=== PATIENT | male | born 1940 | race Caucasian/White ===

== ENCOUNTER 2022-06-22 10:42 | Outpatient (CLI) | payer MEDICARE, SELFPAY ==
--- NOTE | ~2022-06-22 | US_ITS ---
EXAMINATION: US carotid duplex BI DATE: 06/22/2022 11:17 INDICATION: Right carotid bruit TECHNIQUE: Grayscale, color Doppler, and pulsed Doppler images of the cervical carotid arteries were obtained. The degree of vessel stenosis is placed in one of the following categories: normal, <50%, 5 0-69%, >=70% but less than near-occlusion, near-occlusion, or total occlusion. Note that percent sten osis relative to normal distal artery lumen diameter is indirectly measured from velocity measurement s as described by Sundar, et al. Radiology 2003; 229:340-346. Notes: Normal: Peak systolic velocity <125 centimeters/sec and no plaque <50%. Peak systolic velocity <125 ( EDV <40; ICA/CCA PSV ratio <2.0; used these factors only a tandem lesions or low cardiac output or co ntralateral disease) 50-69 %: PSV 125-230 (EDV 40-100; ratio 2-4) >= 70% but less than near occlusion: PSV greater than 230 (EDV > 100; ratio> 4.0) Near Occlusion: PSV that is variable; markedly narrowed lumen Occlusion: Absent flow on color/spectral Doppler and no lumen on meyer scale. COMPARISON: None. FINDINGS: RIGHT: The right common carotid artery (CCA) peak systolic velocity (PSV) is 72 cm/s. The right internal car otid artery (ICA) PSV is 319 cm/s. The right ICA end-diastolic velocity (EDV) is 72 cm/s. The right I CA/CCA PSV ratio is 4.4. The external carotid artery (ECA) PSV is 130 cm/s. There is antegrade flow i n the right vertebral artery. LEFT: The left CCA PSV is 66 cm/s. The left ICA PSV is 75 cm/s. The left ICA EDV is 16 cm/s. The left ICA/C CA PSV ratio is 1.1. The ECA PSV is 149 cm/s. There is antegrade flow in the left vertebral artery. IMPRESSION: 1. Greater than or equal to 70% stenosis in the right internal carotid artery by sonographic criteria . 2. Less than 50% stenosis in the left internal carotid artery by sonographic criteria. Reviewed, dictated and finalized at location L. IMPRESSION: 1. Greater than or equal to 70% stenosis in the right internal carotid artery b y sonographic criteria. 2. Less than 50% stenosis in the left internal carotid artery by sonographic cr iteria.
== END 2022-06-22 10:43 | disposition home or self-care (01) ==
PROVIDERS: PCP Family Medicine; Visit Provider Family Medicine
DX: I65.23 Occlusion and stenosis of bilateral carotid arteries (principal); R09.89 Other specified symptoms and signs involving the circulatory and respiratory systems
CPT/HCPCS: 93880

== ENCOUNTER 2022-06-26 08:00 | Outpatient (CLI) | payer MEDICARE, SELFPAY ==
--- NOTE | ~2022-06-26 | US_ITS ---
EXAMINATION: US aorta [facility] DATE: 06/26/2022 08:40 INDICATION: Abdominal aortic aneurysm screening. TECHNIQUE: Grayscale, color Doppler, and pulsed Doppler images of the aorta and common iliac arteries were obtained. COMPARISON: None. FINDINGS: The aorta is normal in caliber and demonstrates atherosclerosis. The right common iliac artery is nor mal in caliber. The left common iliac artery is normal in caliber. IMPRESSION: 1. No abdominal aortic aneurysm. Reviewed, dictated and finalized at location A.
== END 2022-06-26 08:01 | disposition home or self-care (01) ==
PROVIDERS: PCP Family Medicine; Visit Provider Family Medicine
DX: Z13.6 Encounter for screening for cardiovascular disorders (principal)
CPT/HCPCS: 76706

== ENCOUNTER 2022-07-04 08:07 | Outpatient (CLI) | payer MEDICARE, SELFPAY ==
--- NOTE | ~2022-07-04 | US_ITS ---
US arterial ankle brachial ind INDICATION: Peripheral arterial disease TECHNIQUE: Segmental pressures and plethysmographic and Doppler waveforms of the brachial and lower e xtremity arteries were obtained. COMPARISON: None. FINDINGS: Right and left brachial artery pressures of 127 mm Hg and 139 mm Hg, respectively, are concordant (no rmal difference <= 30 mmHg). The right ankle-brachial index (DESTINY) is 0.58 (normal >= 0.9-1.0). The right great toe-brachial index (TBI) is 0.2 (normal >= 0.60). The left DESTINY is 0.75. The left TBI is 0.29. IMPRESSION: 1. Diminished bilateral ankle and toe brachial indices, consistent with moderate-severe peripheral ar terial disease, right greater than left. Reviewed, dictated and finalized at location L. IMPRESSION: 1. Diminished bilateral ankle and toe brachial indices, consistent with moderat e-severe peripheral arterial disease, right greater than left.
== END 2022-07-04 08:08 | disposition home or self-care (01) ==
PROVIDERS: PCP Family Medicine; Visit Provider Family Medicine
DX: I73.9 Peripheral vascular disease, unspecified (principal)
CPT/HCPCS: 93922

== ENCOUNTER 2022-07-07 11:48 | Outpatient (CLI) | payer MEDICARE, SELFPAY ==
--- NOTE | ~2022-07-07 | US_ITS ---
US right upper quadrant INDICATION: Abnormal labs. PROCEDURE: Realtime right upper abdominal ultrasound. COMPARISON: No prior studies for comparison. FINDINGS: The pancreas is normal without focal mass or pancreatic ductal dilation. There is homogene ous liver echotexture. There is nodular liver surface, compatible with cirrhosis. There is normal di rectional flow in the portal vein. There are gallstones. Common bile duct measures 2 mm. No sonographic Dubon's sign. IMPRESSION: 1: Nodular liver surface, consistent with cirrhosis. 2: Cholelithiasis. Reviewed, dictated and finalized at location B.
== END 2022-07-07 11:49 | disposition home or self-care (01) ==
PROVIDERS: PCP Family Medicine; Visit Provider Physician Assistant
DX: R79.89 Other specified abnormal findings of blood chemistry (principal); K80.20 Calculus of gallbladder without cholecystitis without obstruction; K76.9 Liver disease, unspecified
CPT/HCPCS: 76705

== ENCOUNTER 2022-07-14 08:50 | Outpatient (CLI) | payer MEDICARE, SELFPAY ==
[2022-07-14 10:22] LABS: Alanine Aminotransferase 358 U/L (6-50); Alkaline Phosphatase 82 U/L (38-126); Anion Gap 4 mmol/L (8-16); Aspartate Amino Transferase 449 U/L (17-59); Bilirubin,Total 0.5 mg/dL (0.2-1.3); Blood Urea Nitrogen 37 mg/dL (9-20); Calcium 8.8 mg/dL (8.4-10.2); Carbon Dioxide 34 mmol/L (22-30); Chloride 100 mmol/L (98-107); Estimated Glomerular Filt Rate 29; Glucose 100 mg/dL (65-110); Sodium 138 mmol/L (137-145)
[2022-07-14 11:02] LABS: Hepatitis B Surface Antigen Negative (Negative)
[2022-07-14 11:08] LABS: HAV RESULT Negative (Negative); Hepatitis B Core IgM Result Negative (Negative)
[2022-07-14 11:20] LABS: Hepatitis C Virus Antibody Negative (Negative)
== END 2022-07-14 08:51 | disposition home or self-care (01) ==
LOC: ANHLAB 08:51
PROVIDERS: PCP Family Medicine; Visit Provider Family Medicine
DX: R74.8 Abnormal levels of other serum enzymes (principal); K74.60 Unspecified cirrhosis of liver
CPT/HCPCS: 36415; 80053; 80074; 82728; 86038

== ENCOUNTER 2022-07-14 10:58 | Inpatient (IN) | payer MEDICARE, SELFPAY ==
[2022-07-14] VITALS (22 sets, daily range): BP systolic 128–148; BP diastolic 56–62; PULSE 53–71; RESP 12–34; TEMP 36.6–37.6; O2SAT 95–100; BMI 24.1
--- NOTE | ~2022-07-14 | MR_ITS ---
MRI of the abdomen: Clinical indication: Cholelithiasis, abnormal liver enzymes. Technique: Coronal SSFSE ARC, WATER:coronal LAVA-FLEX, Coronal 2D FIESTA FatSat, Axial SSFSE BH ARC, Axial 3D DualEcho BH, Axial SSFSE-IR, Axial DWI b=500, Axial 2D FIESTA FatSat, pre and dynamic postco ntrast Axial LAVA ARC, postcontrast Coronal In and Opposed phase LAVA FLEX. Following intravenous adm inistration of 15 cc MultiHance gadolinium, T1-weighted fat-sat imaging was performed in the axial an d coronal planes. Findings: Multiple gallstones are noted. The common bile duct is normal in course and caliber. No fi lling defects are seen within the CBD. No evidence of intrahepatic biliary ductal dilatation. The han creatic duct is normal in size. Liver, spleen, pancreas, adrenals, kidneys appear normal. There is focal dilatation of the upper infr arenal abdominal aorta to 3.1 cm in diameter. No suspicious postcontrast enhancement identified. Impression: Cholelithiasis. 3.1 cm infrarenal abdominal aortic aneurysm. Reviewed, dictated and finalized at [facility]. Impression: Cholelithiasis. 3.1 cm infrarenal abdominal aortic aneurysm.
--- NOTE | ~2022-07-14 | CT_ITS ---
CT Scan of the Chest without Contrast: Clinical Indication: Weight loss Technique: Contiguous sections were acquired throughout the chest without intravenous contrast. Dose reduction technique was used on this scan by utilizing automated exposure control and iterative recon struction technique. The dose-length product (DLP) was 216.57 mGy-cm. Findings: There is no evidence of any significant mediastinal, hilar or axillary lymphadenopathy. Atherosclerot ic calcifications of the aorta and coronary arteries are present. There is no evidence of pleural or pericardial effusion. Calcified right lower lobe granuloma present there is mild scarring in the right upper and lower lobe s. Left lung is clear.. Images through the upper abdomen reveal nonobstructing left renal stones measuring up to 5 mm. Impression: No significant pulmonary abnormality seen. Chronic pulmonary findings, as above. Left nephrolithiasis. Reviewed, dictated and finalized at [facility]. Impression: No significant pulmonary abnormality seen. Chronic pulmonary findings, as above . Left nephrolithiasis.
--- NOTE | ~2022-07-14 | CT_ITS ---
EXAMINATION: CT abdomen pelvis wo con DATE: 07/14/2022 13:15 INDICATION: Elevated liver enzymes TECHNIQUE: Computed tomography (CT) of the abdomen and pelvis was performed without intravenous contr ast. The dose-length product (DLP) was 507.12 mGy-cm. Automated exposure control and iterative recons truction technique were employed. COMPARISON: None FINDINGS: A calcified nodule of the right lower lobe is consistent with old granulomatous disease. Th e heart size is normal. Punctate calcifications in an otherwise normal spleen likely represent healed granulomatous disease. There is a 7 mm cyst of the left hepatic lobe. The pancreas and adrenal gland s are normal. There appear to be stones in the nondistended gallbladder. There is no intrahepatic or extrahepatic biliary dilatation. There is a 9 mm nonobstructing stone of the right kidney. There are at least four nonobstructing stones of the left kidney which measure up to 5 mm. There is a 3.1 cm fu siform infrarenal abdominal aortic aneurysm. No pathologically enlarged abdominal or pelvic lymph nod es are identified. There is calcified atherosclerosis of the aorta and many of the other arteries. Co lonic diverticulosis is present without evidence of diverticulitis. No free intraperitoneal gas or ev idence of bowel obstruction. There is fat stranding of the small bowel mesentery with preservation of the fat around the mesenteric vessels (fat ring sign). There is mild lumbar spondylosis. IMPRESSION: 1. No CT correlate for the patient's symptoms. 2. Bilateral nonobstructing nephrolithiasis. 3. Findings consistent with mesenteric panniculitis. 4. 3.1 cm fusiform infrarenal abdominal aortic aneurysm. 5. Possible cholelithiasis. Reviewed, dictated and finalized at location B.
--- NOTE | ~2022-07-14 | XR_ITS ---
EXAMINATION: XR chest 1V portable DATE: 07/14/2022 12:53 INDICATION: Weakness. TECHNIQUE: A single frontal view of the chest was obtained on 3 radiographs. COMPARISON: None. FINDINGS: The patient is rotated to his right. There is a 1 cm nodule in right lower lung zone. No pl eural effusion or pneumothorax. The heart size is normal. There are old healed left rib fractures. IMPRESSION: 1. 1 cm nodule in right lower lung zone suspicious for primary bronchogenic carcinoma. Noncontrast ch est CT is recommended (unless the nodule is included on the pending CT abdomen and pelvis). Reviewed, dictated and finalized at location A. IMPRESSION: 1. 1 cm nodule in right lower lung zone suspicious for primary bronchogenic car cinoma. Noncontrast chest CT is recommended (unless the nodule is included on t he pending CT abdomen and pelvis).
--- NOTE | 2022-07-14 12:18 | ECG_ITS ---
Measurements Intervals [place] Rate: 55 P: 33 VA: 198 QRS: -28 QRSD: 89 T: -2 QT: 441 QTc: 423 Interpretive Statements SINUS BRADYCARDIA LEFT VENTRICULAR HYPERTROPHY AND ST-T CHANGE [VOLTAGE CRITERIA PLUS ST/T ABNORMALITY] NO PREVIOUS ECG AVAILABLE FOR COMPARISON Electronically Signed On 07-14-2022 13:52:18 CDT by Valerie Velasquez M.D.
--- NOTE | 2022-07-14 12:18 | ED.RECABL ---
HPI - Recheck/Abnormal Lab/Rx General Chief Complaint: Recheck/Abnormal Lab/Rx Stated Complaint: liver and kidney labs abnormal Time Seen by Provider: 07/14/22 12:14 Source: patient Mode of arrival: ambulatory Limitations: no limitations History of Present Illness HPI narrative: 81 years old white male came with progressive weakness all over for months, was seen by a new family physician 1 month ago, and today blood work-up showed elevated liver enzymes and elevated creatinine referred to our emergency room for further evaluation. Patient denies any fever, chills, nausea, vomiting, diarrhea, abdominal pain, chest pain, shortness of breath, headache or focal neurodeficit. Patient started anticholesterol medication probably 6 months ago, we do not have old records for comparison at this time. Related Data Home Medications Medication Instructions Recorded Confirmed cetirizine 10 mg tablet (Zyrtec) 10 mg PO DAILY PRN 06/14/22 07/05/22 melatonin 10 mg tablet 10 mg PO QHS 06/14/22 07/05/22 metoprolol succinate 50 mg 50 mg PO DAILY 06/14/22 07/05/22 tablet,extended release 24 hr rosuvastatin 40 mg tablet 40 mg PO DAILY 06/14/22 07/05/22 trazodone 100 mg tablet 100 mg PO QHS PRN 06/14/22 07/05/22 Allergies Allergy/AdvReac Type Severity Reaction Status Date / Time No Known Allergies Allergy Verified 07/14/22 12:03 Review of Systems Review of Systems: All systems reviewed & are unremarkable except as noted in HPI and below PMFSH Past Medical History Medical History Erectile dysfunction Hyperlipidemia Hypertension Insomnia Peripheral arterial disease Surgical History Surgical History 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 History of appendectomy Family History Family History Father Gastric cancer Mother Hypertension Sibling Hypertension Social History Social History Smoking status: Former smoker Alcohol intake: never Substance use: never Living arrangements: with family Occupation/Education: retired Gender identity (if verbalized by the patient): Male Sexual Orientation (if Verbalized by the Patient): Straight or Heterosexual Spiritual care concerns: No Exam Narrative: General appearance: Well-developed, well-nourished Skin: Normal color Head: Normocephalic, nontraumatic Eyes: Clear conjunctiva ENT: Oropharynx normal, ears normal, nose normal Neck: Supple, nontender Chest and respiratory: Airway patent, no respiratory distress, no accessory muscle use Heart: Regular rate/rhythm Abdomen: Soft, nontender, no organomegaly, quiet bowel sounds Vascular: Normal peripheral pulses, normal capillary refill. Musculoskeletal: Normal range of motion, nontender back Neurologic: Alert and oriented ?3, [employer] is normal as tested, no gross motor deficit Course Reevaluation(s) Reevaluation #1: No new changes since arrival to the emergency room until the time of admission Date: 07/14/22 Time: 14:49 Vital Signs Vital signs: Vital Signs Temperature 36.6 C 07/14/22 11:01 Pulse Rate 65 07/14/22 11:01 Respiratory Rate 20 07/14/22 11:01 Blood Pressure 129/56 L 07/14/22 11:01 Pulse Oximetry 97 07/14/22 11:01 Oxygen Delivery Room Air 07/14/22 11:01 Temperature 36.6 C 07/14/22 11:01 Pulse Rate 64 07/14/22 14:30 Respiratory Rate 22 H 07/14/22 14:30 Blood Pressure 148/58 H 07/14/22 12:19 Pulse Oximetry 98 07/14/22 14:30 Oxygen Delivery Room Air 07/14/22 11:01 [facility] -
[2022-07-14 13:27] LABS: Appearance Urine Cloudy (Clear); Bacteria Urine None Seen /hpf; Bilirubin Urine Negative (Negative); Blood Urine 3+ (Negative); Color Urine Yellow (Yellow); Glucose Urine UA Negative (Negative); Hyaline Casts Urine Present /lpf; Ketones Urine Negative (Negative); Leukocyte Esterase Ur Trace LEU/UL (Negative); Need Manual Microscopic Reviewed; Nitrate Urine Negative (Negative); Protein Urine 3+ mg/dL (Negative); Specific Grav Ur 1.016 (1.001-1.035); Squamous Epithelial Cell Urine None seen /hpf (Few); WBC Urine 0-5 /hpf; pH Urine 6.5 (5.0-9.0)
[2022-07-14 13:30] LABS: Add Urine Microscopic? YES
[2022-07-14] MEDS: SODIUM CHLORIDE 0.9% IV 1,000 ML 125 ML IV CONT ×2 (15:16→23:23)
--- NOTE | 2022-07-14 16:05 | ADMGEN ---
This patient, Destin Acosta, was admitted to Medical Room 260-01. Patient/family oriented to hospital policies and general routines including ID bracelet, bed and alarms, visiting hours, pain management, procedures, bathroom and other care routines, personal items, smoking policy, room service/diet, and visiting hours. Information on how to activate the Rapid Response Team has been discussed. Patient/Family are encouraged to report perceived risks to care and to ask questions if they do not understand what they are told or what they should do.
--- NOTE | 2022-07-14 22:07 | PM.IMHP ---
H&P: HPI History of Present Illness Date/Time: 07/14/22 22:07 Chief Complaint: Abnormal lab Narrative: this is an 81-year-old male patient who has been complaining of progressive weakness over last several months. The patient has gone to a new physician over the last month and has had some Lab workup. the patient denies any fever chills. The patient was sent to the emergency room for elevated liver enzymes and elevated creatinine. The only new medication was some cholesterol medication that he surgery over 6 months ago. His creatinine was noted to be 2.2 and we have no prior lab values for comparison. AST is 449 with her previous lab value on 07/06/2022. It was 339. ALT is 358 today and was 272 a month ago. The patient has 3+ protein in his urine is cloudy I saw has 3+ blood with trace leukocyte esterase. He has negative hepatitis panel. Abdominal pelvis CT was read as followingNo CT correlate for the patient's symptoms. 2. Bilateral nonobstructing nephrolithiasis. 3. Findings consistent with mesenteric panniculitis. 4. 3.1 cm fusiform infrarenal abdominal aortic aneurysm. 5. Possible cholelithiasis. chest x-ray was read as the following?cm nodule in right lower lung zone suspicious for primary bronchogenic carcinoma. Noncontrast chest CT is recommended (unless the nodule is included on the pending CT abdomen and pelvis). he denies any nausea vomiting or diarrhea. The patient was started on IV fluids. The patient is being admitted for observation status on the date Services 07/14/2022 Review of Systems Review of Systems: All systems reviewed & are unremarkable except as noted in HPI and below Constitutional: Constitutional: Reports as per HPI and Reports no additional constitutional complaints Eyes: Eyes: Reports as per HPI and Reports no additional eye complaints ENT: Reports system reviewed and no additional complaints, except as documented and Reports Normal hearing present Cardiovascular: Cardiovascular: Reports no additional cardiovascular complaints Respiratory: Respiratory: Reports no additional respiratory complaints and Reports no additional respiratory complaints Gastrointestinal: Gastrointestinal: Reports as per HPI and Reports no additional gastrointestinal complaints Musculoskeletal: Musculoskeletal: Reports no additional musculoskeletal complaints Integumentary/Breasts: Skin/Breast: Reports system reviewed and no additional complaints, except as docu and Reports as per HPI Neurologic: Reports system reviewed and no additional complaints, except as documented, Reports as per HPI and Reports Normal hearing present Psychiatric: Psychiatric: Reports no additional psychiatric complaints and Reports as per HPI Endocrine: Endocrine: Reports no additional endocrine complaints Hematologic/Lymphatic: Hematologic/Lymphatic: Reports no additional hematologic/lymphatic complaints Allergic/Immunologic: Allergic/Immunologic: Reports no additional allergic/immunologic complaints [facility] Past Medical History Medical History Erectile dysfunction Hyperlipidemia Hypertension Insomnia Peripheral arterial disease Surgical History Surgical History 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 He is retired code status full code Smoking status: Former smoker Alcohol intake: never Substance use: never Lack of Transportation: No Lack of Food: Never True Current Housing: I Have Housing Concerned About Future Housing: No Difficulty Paying Gas/Electric Bills: No Di
[2022-07-15 03:59] VITALS: BP 157/67; PULSE 57; RESP 16; TEMP 37.1; O2SAT 97
[2022-07-15 05:59] LABS: Basophils Absolute Auto 0.1 K/mm3 (0.0-0.1); Basophils Percent Auto 0.5 % (0.2-1.2); Eosinophils Absolute Auto 0.4 K/mm3 (0-0.3); Eosinophils Percent Auto 3.8 % (0-4.4); Hematocrit 42.9 % (42.0-52.0); Hemoglobin 13.7 g/dL (14.0-18.0); Immature Granulocyte Absolute 0.05 K/mm3 (0.00-0.031); Immature Granulocyte Percent A 0.5 % (0-0.5); Lymphocytes Absolute Auto 1.25 K/mm3 (0.9-3.2); Lymphocytes Percent Auto 11.6 % (18.3-44.2); Mean Corpuscular HGB Conc 31.9 g/dl (32-36); Mean Corpuscular Volume 94.1 fl (80-100); Mean Platelet Volume 11.3 fl (7.4-10.4); Monocytes Absolute Auto 1.1 K/mm3 (0.1-0.6); Neutrophils Absolute Auto 7.9 K/mm3 (1.3-6.7); Neutrophils Percent Auto 73.6 % (45.5-73.1); Platelet Count Result 301 k/mm3 (150-375); Red Blood Count 4.56 M/mm3 (4.6-6.20); Red Cell Distribution Width 14.2 % (11.5-14.5); White Blood Count 10.8 K/mm3 (4.5-10.0)
[2022-07-15 06:18] LABS: Lactic Acid Reflex 0.8 mmol/L (0.7-2.0)
[2022-07-15 06:23] LABS: Alanine Aminotransferase 359 U/L (6-50); Alkaline Phosphatase 81 U/L (38-126); Anion Gap 4 mmol/L (8-16); Aspartate Amino Transferase 453 U/L (17-59); Bilirubin,Total 0.5 mg/dL (0.2-1.3); Blood Urea Nitrogen 32 mg/dL (9-20); Calcium 8.3 mg/dL (8.4-10.2); Carbon Dioxide 31 mmol/L (22-30); Chloride 102 mmol/L (98-107); Estimated CRCL calculation 24 ml/min; Estimated Glomerular Filt Rate 30; Glucose 90 mg/dL (65-110); Magnesium 2.2 mg/dL (1.6-2.3); Potassium 4.3 mmol/L (3.4-5.0); Sodium 137 mmol/L (137-145)
--- NOTE | 2022-07-15 06:47 | PC.NURSE ---
PT REFUSING TO COMPLETE CONSENT FOR MRCP. EDUCATED PT ON IMPORTANCE OF MRCP. PT STATES HE DOES NOT FEEL COMFORTABLE HAVING IT. PT STATES HE WOULD LIKE TO SPEAK MORE WITH THE DOCTOR ABOUT MRCP
--- NOTE | 2022-07-15 08:46 | WPDGICN ---
Assessment and Plan Assessment and plan (1) Weakness: Code(s): R53.1 - Weakness Status: Acute Assessment and Plan: wonder if could have component of myopathy because progressive proximal weakness- will check ck and aldolase (2) Elevated liver enzymes: Code(s): R74.8 - Abnormal levels of other serum enzymes Status: Acute Assessment and Plan: last ultrasound noted possible cirrhosis will complete work up of chronic liver conditions order CK (if elevated then can explain abnormal liver enzymes) hold statin for now (3) Cirrhosis: Code(s): K74.60 - Unspecified cirrhosis of liver Status: Acute Assessment and Plan: will complete work up, no hepatitis, yarelis pending may need egd as outpatient to assess for portal htn, etc (4) Renal insufficiency: Code(s): N28.9 - Disorder of kidney and ureter, unspecified Status: Acute Assessment and Plan: new finding work up by primary (5) Hypertension: Code(s): I10 - Essential (primary) hypertension Status: Acute GI Consult Note Consult date/time: 07/15/22 08:46 Reason for consult: elevated liver enzymes, weakness HPI: Destin Acosta is a 81 year old male with h/o HTN, high cholesterol on statin who has been complaining of progressive proximal weakness over last month (he has been having hard time of getting up and lifting her arms). She went to see her PCP and found to have elevated transaminases 200's (no alcohol use, no h/o liver disease), esr normal, yarelis pending, ultrasound showed possible liver cirrhosis. Repeat blood work persistent elevated transaminases and also [place]. His creatinine was 2.2, ALT is 358, normal bilirubin. He has negative hepatitis panel.? Abdominal pelvis CT was reviewed- no CT correlate for the patient's symptoms, Bilateral nonobstructing nephrolithiasis. Findings consistent with mesenteric panniculitis. 3.1 cm fusiform infrarenal abdominal aortic aneurysm. Possible cholelithiasis. Review of Systems Constitutional: Constitutional: Denies chills and Reports weakness Eyes: Eyes: Denies blurry vision ENT: Reports Normal hearing present Cardiovascular: Cardiovascular: Denies chest pain Respiratory: Respiratory: Denies cough Gastrointestinal: Gastrointestinal: Denies abdominal pain and Denies nausea Genitourinary: Genitourinary: Denies hematuria Musculoskeletal: Comments: weakness Integumentary/Breasts: Skin/Breast: Denies rash Neurologic: Denies Abnormal speech present Psychiatric: Psychiatric: Denies confusion [facility] Past Medical History Medical History Erectile dysfunction Hyperlipidemia Hypertension Insomnia Peripheral arterial disease Surgical History Surgical History 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 He is retired code status full code Smoking status: Former smoker Alcohol intake: never Substance use: never Lack of Transportation: No Lack of Food: Never True Current Housing: I Have Housing Concerned About Future Housing: No Difficulty Paying Gas/Electric Bills: No Difficulty Paying for Meds: No Currently Unemployed: No Education: High School Diploma/GED Difficulty w/ Childcare or Family Care: No Living arrangements: with family Occupation/Education: retired Gender identity (if verbalized by the patient): Male Sexual Orientation (if Verbalized by the Patient): Straight or Heterosexual Spiritual care concerns: No Meds Home Medications and Allergies Home Me
[2022-07-15 08:54] LABS: Free T4 Free Thyroxine Reflex 1.09 ng/dL (0.78-2.19)
[2022-07-15] MEDS: LORATADINE 10 MG TABLET PO (09:08)
[2022-07-15] MEDS: THIAMINE HCL 100 MG TABLET PO (09:09)
[2022-07-15 09:10] VITALS: PULSE 66
[2022-07-15] MEDS: METOPROLOL SUCCINATE EXT REL 50 MG TABCR PO (09:10)
[2022-07-15 09:59] LABS: Creatine Kinase > 16000 U/L (55-170)
--- NOTE | 2022-07-15 10:41 | PCPTNOTE ---
received PT orders for pt; activity order is bed rest ; left voice mail message to change activity order if PT to eval pt for Dr Lucero.
[2022-07-15 10:57] LABS: Total Triiodothyronine (T3) 0.94 NG/ML (0.97-1.69)
--- NOTE | 2022-07-15 12:32 | PM.IMPN ---
Progress Note: A&P Assessment and Plan (1) Weakness: Code(s): R53.1 - Weakness Status: Acute Assessment and Plan: Significant proximal muscle weakness. CK ordered by GI earlier today reaching the presenting diagnosis of rhabdomyolysis. Underlying etiology is unknown however will Discontinue statin use. Thyroid function is normal IV hydration to continue and monitor CK level PT OT to see (2) Elevated liver enzymes: Code(s): R74.8 - Abnormal levels of other serum enzymes Status: Acute Assessment and Plan: Hold statin MRCP is the patient does have a history of cholelithiasis. Bilirubin and ALP is normal choledocholithiasis less suspected However he is claustrophobic and hesitant in getting the MRCP done. (3) Renal insufficiency: Code(s): N28.9 - Disorder of kidney and ureter, unspecified Status: Acute Assessment and Plan: Hold lisinopril. Continue with IV fluids and monitor CT negative for hydronephrosis Could be related to underlying rhabdomyolysis (4) Hypertension: Code(s): I10 - Essential (primary) hypertension Status: Acute Assessment and Plan: Continue with metoprolol on hold lisinopril due to the acute renal failure. (5) Hyperlipidemia: Code(s): E78.5 - Hyperlipidemia, unspecified Status: Acute Assessment and Plan: Holding statin due to his elevated liver enzymes. (6) Peripheral arterial disease: Code(s): I73.9 - Peripheral vascular disease, unspecified Status: Acute Assessment and Plan: Continue with current treatment. (7) Aneurysm: Code(s): I72.9 - Aneurysm of unspecified site Status: Acute Assessment and Plan: 1. No CT correlate for the patient's symptoms. 2. Bilateral nonobstructing nephrolithiasis. 3. Findings consistent with mesenteric panniculitis. 4. 3.1 cm fusiform infrarenal abdominal aortic aneurysm. 5. Possible cholelithiasis. The patient will need to be monitored outpatient. Plan Cirrhosis of liver: New diagnosis no use of alcohol. Will check ferritin hepatitis panel BORIS hepatitis panel is negative Loss of weight over 40 lb over a year will do CT chest to further evaluate Diarrhea check ESR CRP. Stool studies Subjective Date/time seen: 07/15/22 12:32 Interval history: Chart reviewed. Progressive weakness over the past month ir to. LFTs elevated unclear etiology. No history of alcohol use. Ongoing diarrhea for few months. Progressive proximal muscle weakness reported elevated creatinine which has been worsening creatinine of 2.2 prior level reported 1.6. Been started on IV fluids. Feels better. CK level came back very elevated. Ultrasound liver with cirrhosis Review of Systems Review of Systems: All systems reviewed & are unremarkable except as noted in HPI and below Exam Narrative: General appearance: Well-developed, well-nourished Skin: Normal color no rash Head: Normocephalic, nontraumatic Eyes: Clear conjunctiva ENT: Oropharynx normal, ears normal, nose normal Neck: Supple, nontender Chest and respiratory: Airway patent, no respiratory distress, no accessory muscle use Heart: Regular rate/rhythm Abdomen: Soft, nontender, no organomegaly, quiet bowel sounds Vascular: Normal peripheral pulses, normal capillary refill. Musculoskeletal: Normal range of motion, nontender back Neurologic: Alert and oriented ?3, [employer] is normal as tested, proximal muscle weakness unable to lift legs up also had upper extremity weakness ?? Objective Data Vital Signs Vital Signs: Vital Signs - 24 hr 07/14/22 12:57 07/14/22 13:18 07/14/22 13:52 Temperature Pulse Rate 59 L 59 L 59 L Respiratory Rate 23 H 25 H Blood Pressure Pulse Oximetry 98 Oxygen Delivery 07/14/22 14:00 07/14/22 14:15 07/14/22 14:30 Temperature Pulse Rate 57 L 55 L 64 Respiratory Rate 19 22 H 22 H Blood Pressure Pulse Oximetry 98 97 98 Oxygen De
[2022-07-15 13:21] LABS: CRP 1.6 mg/dL (<1.0)
[2022-07-15 13:28] LABS: Erythrocyte Sedimentation Rate 48 mm/hr (0-20)
[2022-07-15 14:30] VITALS: BP 156/59; PULSE 64; RESP 18; TEMP 36.7; O2SAT 98
[2022-07-15 15:04] LABS: Lactate Dehydrogenase 1226 U/L (120-246)
[2022-07-15 19:20] VITALS: BP 168/61; PULSE 61; RESP 16; TEMP 37.1; O2SAT 97
[2022-07-15 20:00] VITALS: PULSE 61; RESP 16; O2SAT 97
[2022-07-15] MEDS: MELATONIN 5 MG TABLET 10 MG PO (20:49)
[2022-07-16] MEDS: traZODone HCL 50 MG TABLET 100 MG PO ×2 (00:10→23:09)
[2022-07-16] MEDS: SODIUM CHLORIDE 0.9% IV 1,000 ML 125 ML IV CONT ×2 (00:11→17:43)
[2022-07-16 05:19] VITALS: BP 140/77; PULSE 74; RESP 18; TEMP 36.8; O2SAT 95
[2022-07-16 05:58] LABS: Basophils Percent Auto 0.3 % (0.2-1.2); Eosinophils Absolute Auto 0.4 K/mm3 (0-0.3); Eosinophils Percent Auto 3.9 % (0-4.4); Hematocrit 39.4 % (42.0-52.0); Hemoglobin 12.6 g/dL (14.0-18.0); Immature Granulocyte Absolute 0.01 K/mm3 (0.00-0.031); Immature Granulocyte Percent A 0.1 % (0-0.5); Lymphocytes Absolute Auto 1.16 K/mm3 (0.9-3.2); Lymphocytes Percent Auto 12.8 % (18.3-44.2); Mean Corpuscular Hemoglobin 30.2 pg (26-34); Mean Corpuscular Volume 94.5 fl (80-100); Mean Platelet Volume 11.6 fl (7.4-10.4); Monocytes Absolute Auto 0.9 K/mm3 (0.1-0.6); Monocytes Percent Auto 9.9 % (2.6-8.5); Neutrophils Absolute Auto 6.6 K/mm3 (1.3-6.7); Platelet Count Result 262 k/mm3 (150-375); Red Blood Count 4.17 M/mm3 (4.6-6.20); Red Cell Distribution Width 14.4 % (11.5-14.5); White Blood Count 9.1 K/mm3 (4.5-10.0)
[2022-07-16 06:35] LABS: Alanine Aminotransferase 326 U/L (6-50); Albumin Level 3.4 g/dL (3.5-5.1); Alkaline Phosphatase 71 U/L (38-126); Anion Gap 5 mmol/L (8-16); Aspartate Amino Transferase 410 U/L (17-59); Bilirubin,Total 0.5 mg/dL (0.2-1.3); Blood Urea Nitrogen 35 mg/dL (9-20); Calcium 8.2 mg/dL (8.4-10.2); Carbon Dioxide 29 mmol/L (22-30); Chloride 106 mmol/L (98-107); Creatine Kinase > 16000 U/L (55-170); Estimated CRCL calculation 26 ml/min; Estimated Glomerular Filt Rate 34; Glucose 84 mg/dL (65-110); Potassium 4.4 mmol/L (3.4-5.0); Sodium 140 mmol/L (137-145)
[2022-07-16] MEDS: LORazepam INJ (*CRX) 2 MG/ML VIAL 1 MG IV PUSH (06:48)
[2022-07-16 08:00] VITALS: PULSE 63; RESP 18; O2SAT 97
[2022-07-16 09:19] VITALS: PULSE 75
[2022-07-16] MEDS: LORATADINE 10 MG TABLET PO (09:19)
[2022-07-16] MEDS: METOPROLOL SUCCINATE EXT REL 50 MG TABCR PO (09:19)
[2022-07-16] MEDS: THIAMINE HCL 100 MG TABLET PO (09:20)
--- NOTE | 2022-07-16 12:16 | PM.IMPN ---
Progress Note: A&P Assessment and Plan (1) Weakness: Code(s): R53.1 - Weakness Status: Acute Assessment and Plan: Significant proximal muscle weakness. CK ordered by GI earlier today reaching the presenting diagnosis of rhabdomyolysis. Underlying etiology is unknown however will Discontinue statin use. Thyroid function is normal IV hydration to continue and monitor CK level PT OT to see Continue to monitor CK level (2) Elevated liver enzymes: Code(s): R74.8 - Abnormal levels of other serum enzymes Status: Acute Assessment and Plan: Hold statin MRCP is the patient does have a history of cholelithiasis. Bilirubin and ALP is normal choledocholithiasis less suspected However he is claustrophobic and hesitant in getting the MRCP done. MRCP done today pending results (3) Renal insufficiency: Code(s): N28.9 - Disorder of kidney and ureter, unspecified Status: Acute Assessment and Plan: Hold lisinopril. Continue with IV fluids and monitor CT negative for hydronephrosis Could be related to underlying rhabdomyolysis (4) Hypertension: Code(s): I10 - Essential (primary) hypertension Status: Acute Assessment and Plan: Continue with metoprolol on hold lisinopril due to the acute renal failure. (5) Hyperlipidemia: Code(s): E78.5 - Hyperlipidemia, unspecified Status: Acute Assessment and Plan: Holding statin due to his elevated liver enzymes. (6) Peripheral arterial disease: Code(s): I73.9 - Peripheral vascular disease, unspecified Status: Acute Assessment and Plan: Continue with current treatment. (7) Aneurysm: Code(s): I72.9 - Aneurysm of unspecified site Status: Acute Assessment and Plan: 1. No CT correlate for the patient's symptoms. 2. Bilateral nonobstructing nephrolithiasis. 3. Findings consistent with mesenteric panniculitis. 4. 3.1 cm fusiform infrarenal abdominal aortic aneurysm. 5. Possible cholelithiasis. The patient will need to be monitored outpatient. Plan Cirrhosis of liver: New diagnosis no use of alcohol. Will check ferritin hepatitis panel BORIS hepatitis panel is negative Loss of weight over 40 lb over a year. CT chest negative for any suspicious Diarrhea check ESR CRP. Stool studies Subjective Date/time seen: 07/16/22 12:16 Interval history: Chart reviewed. Progressive weakness over the past month ir to. LFTs elevated unclear etiology. No history of alcohol use. Ongoing diarrhea for few months. Progressive proximal muscle weakness reported elevated creatinine which has been worsening creatinine of 2.2 prior level reported 1.6. Been started on IV fluids. Feels better. CK level came back very elevated. Ultrasound liver with cirrhosis 07/16/2022 no overnight events. Feeling stronger. Weakness has improved. IV fluid is ongoing. No shortness of breath or chest pain. Review of Systems Review of Systems: All systems reviewed & are unremarkable except as noted in HPI and below Exam Narrative: General appearance: Well-developed, well-nourished Skin: Normal color no rash Head: Normocephalic, nontraumatic Eyes: Clear conjunctiva ENT: Oropharynx normal, ears normal, nose normal Neck: Supple, nontender Chest and respiratory: Airway patent, no respiratory distress, no accessory muscle use Heart: Regular rate/rhythm Abdomen: Soft, nontender, no organomegaly, quiet bowel sounds Vascular: Normal peripheral pulses, normal capillary refill. 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 Objective Data Vital Signs Vital Signs: Vital Signs - 24 hr 07/15/22 14:30 07/15/22 19:20 07/15/22 20:00 Temperature 98.1 F 98.8 F Pulse Rate 64 61 61 Respiratory Rate 18 16 16 Blood Pressure 156/59 H 168/61 H Pulse Oximetry 98 97 97 Oxygen Delivery Room
[2022-07-16 13:46] VITALS: BP 104/51; PULSE 63; RESP 18; TEMP 37; O2SAT 97
--- NOTE | 2022-07-16 15:27 | PCPTNOTE ---
Attempted to see pt for PT session; pt declined at this time as he wanted to rest.
[2022-07-16 19:42] VITALS: BP 134/60; PULSE 62; RESP 20; TEMP 37.2; O2SAT 98
--- NOTE | 2022-07-16 19:42 | WPDGIPROGNO ---
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, unspecified Status: Acute Assessment and Plan: this is the cause of proximal weakness and subsequent elevated transaminases, this is not liver related he will need complete work up for myopathy (pending aldolase), will get cryo/anca to assess if vasculitis, anti mayela and consult neurology consider EMG, MRI, biopsy- work up by primary will follow from [place], call if questions (2) Rhabdomyolysis: Code(s): M62.82 - Rhabdomyolysis Status: Acute Assessment and Plan: statin also on hold (3) Weakness: Code(s): R53.1 - Weakness Status: Acute Assessment and Plan: from myopathy (4) Elevated liver enzymes: Code(s): R74.8 - Abnormal levels of other serum enzymes Status: Acute (5) Aneurysm: Code(s): I72.9 - Aneurysm of unspecified site Status: Acute (6) Renal insufficiency: Code(s): N28.9 - Disorder of kidney and ureter, unspecified Status: Acute Subjective Date/time seen: 07/16/22 19:42 Interval history: similar proximal weakness, no major changes Review of Systems Review of Systems: All systems reviewed & are unremarkable except as noted in HPI and below Exam Const: General: comfortable and no acute distress HENMT: Face/Nose/Sinus: Normal nares present Eyes: General: appearance normal, both eyes and all related structures Neck: Neck: no JVD Resp: Auscultation: clear to auscultation bilaterally Cardio: Rate: regular rate Rhythm: regular rhythm GI: Inspection: non-distended GI Palp: Yes Soft to palpation and No Tenderness to palpation present (GI) Auscultation: normal bowel sounds Skin: General skin exam: normal color Neuro: General: gait normal Speech: normal speech Other: noted proximal weakness Extrem: General: normal to inspection Psych: Mental Status: mental status grossly normal Objective Data Vital Signs Vital Signs: Vital Signs - 24 hr 07/15/22 20:00 07/16/22 05:19 07/16/22 09:19 Temperature 98.3 F Pulse Rate 61 74 75 Respiratory Rate 16 18 Blood Pressure 140/77 Pulse Oximetry 97 95 Oxygen Delivery Room Air 07/16/22 13:46 07/16/22 08:00 Temperature 98.6 F Pulse Rate 63 63 Respiratory Rate 18 18 Blood Pressure 104/51 L Pulse Oximetry 97 97 Oxygen Delivery Room Air Intake/Output Intake/Output: Intake & Output 07/13/22 07/14/22 07/15/22 07/16/22 23:59 23:59 23:59 23:59 Intake Total 1200 2850 1640 Output Total 350 1425 1025 Balance 850 1425 615 Meds/Results Medications: Active Medications Generic Name Dose Route Start Last Admin Trade Name Freq PRN Reason Stop Dose Admin Sodium Chloride 1,000 mls @ 125 mls/hr 07/14/22 15:00 07/16/22 17:43 Normal Saline Iv IV CONT 125 mls/hr .Q8H PATITO Administration Loratadine 10 mg 07/15/22 09:00 07/16/22 09:19 Loratadine 10 Mg Tablet PO 10 mg QAM PATITO Administration Melatonin 10 mg 07/15/22 21:00 07/15/22 20:49 Melatonin 5 Mg Tablet PO 10 mg QHS PATITO Administration Metoprolol Succinate 50 mg 07/15/22 09:00 07/16/22 09:19 Metoprolol Succinate Ext Rel 50 Mg Tabcr PO 50 mg DAILY PATITO Administration Thiamine HCl 100 mg 07/15/22 09:00 07/16/22 09:20 Thiamine Hcl 100 Mg Tablet PO 100 mg QAM PATITO Administration Trazodone HCl 100 mg 07/15/22 04:46 07/16/22 00:10 Trazodone Hcl 50 Mg Tablet PO 100 mg QHS PRN Administration Sleep Radiology Results: ITS Impressions Chest X-Ray 07/14/22 12:56 IMPRESSION: 1. 1 cm nodule in right lower lung zone suspicious for primary bronchogenic carcinoma. Noncontrast chest CT is recommended (unless the nodule is included on the pending CT abdomen and pelvis). ADDENDUM: 07/14/22 1331 Comparison is made with the CT abdomen and pelvis from 07/14/2022. The nodule in right lower lung zone is calcified, consistent with ol
[2022-07-16] MEDS: MELATONIN 5 MG TABLET 10 MG PO (21:48)
[2022-07-17] MEDS: SODIUM CHLORIDE 0.9% IV 1,000 ML 125 ML IV CONT ×3 (00:37→20:57)
[2022-07-17 04:34] VITALS: BP 157/74; PULSE 69; RESP 18; TEMP 36.6; O2SAT 99
[2022-07-17 06:01] LABS: Basophils Absolute Auto 0.1 K/mm3 (0.0-0.1); Basophils Percent Auto 0.6 % (0.2-1.2); Eosinophils Absolute Auto 0.4 K/mm3 (0-0.3); Eosinophils Percent Auto 4.1 % (0-4.4); Hematocrit 38.1 % (42.0-52.0); Hemoglobin 12.2 g/dL (14.0-18.0); Immature Granulocyte Absolute 0.02 K/mm3 (0.00-0.031); Immature Granulocyte Percent A 0.2 % (0-0.5); Lymphocytes Absolute Auto 1.29 K/mm3 (0.9-3.2); Lymphocytes Percent Auto 15.2 % (18.3-44.2); Mean Corpuscular Hemoglobin 29.8 pg (26-34); Mean Corpuscular Volume 92.9 fl (80-100); Monocytes Absolute Auto 0.9 K/mm3 (0.1-0.6); Monocytes Percent Auto 10.4 % (2.6-8.5); Neutrophils Absolute Auto 5.9 K/mm3 (1.3-6.7); Neutrophils Percent Auto 69.5 % (45.5-73.1); Platelet Count Result 262 k/mm3 (150-375); Red Cell Distribution Width 14.5 % (11.5-14.5); White Blood Count 8.5 K/mm3 (4.5-10.0)
[2022-07-17 06:12] LABS: Alanine Aminotransferase 317 U/L (6-50); Albumin Level 3.4 g/dL (3.5-5.1); Alkaline Phosphatase 64 U/L (38-126); Anion Gap 5 mmol/L (8-16); Aspartate Amino Transferase 347 U/L (17-59); Bilirubin,Total 0.6 mg/dL (0.2-1.3); Blood Urea Nitrogen 32 mg/dL (9-20); Calcium 7.9 mg/dL (8.4-10.2); Carbon Dioxide 25 mmol/L (22-30); Chloride 106 mmol/L (98-107); Estimated CRCL calculation 31 ml/min; Estimated Glomerular Filt Rate 42; Glucose 75 mg/dL (65-110); Magnesium 2.1 mg/dL (1.6-2.3); Potassium 4.6 mmol/L (3.4-5.0); Sodium 136 mmol/L (137-145)
[2022-07-17 08:26] LABS: Creatine Kinase 14897 U/L (55-170)
--- NOTE | 2022-07-17 09:14 | WPDNEURCNPN ---
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 He is retired code status full code Smoking status: Former smoker Alcohol intake: never Substance use: never Lack of Transportation: No Lack of Food: Never True Current Housing: I Have Housing Concerned About Future Housing: No Difficulty Paying Gas/Electric Bills: No Difficulty Paying for Meds: No Currently Unemployed: No Education: High School Diploma/GED Difficulty w/ Childcare or Family Care: No Living arrangements: with family Occupation/Education: retired Gender identity (if verbalized by the patient): Male Sexual Orientation (if Verbalized by the Patient): Straight or Heterosexual Spiritual care concerns: No Meds Home Medications and Allergies Home Medications Medication Instructions Recorded Confirmed Type cetirizine 10 mg tablet (Zyrtec) 10 mg PO DAILY 06/14/22 07/14/22 History melatonin 10 mg tablet 10 mg PO QHS 06/14/22 07/14/22 History metoprolol succinate 50 mg 50 mg PO DAILY 06/14/22 07/14/22 History tablet,extended release 24 hr rosuvastatin 40 mg tablet 40 mg PO HS 06/14/22 07/14/22 History tadalafil 20 mg tablet (Cialis) 20 mg PO DAILY PRN sexual activity 06/14/22 07/14/22 Rx #10 tabs trazodone 100 mg tablet 100 mg PO QHS PRN Sleep 06/14/22 07/14/22 History lisinopril 20 mg tablet 20 mg PO DAILY 07/14/22 07/14/22 History thiamine mononitrate (vit B1) 100 100 mg PO DAILY 07/14/22 07/14/22 History mg tablet Allergies Allergy/AdvReac Type Severity Reaction Status Date / Time No Known Allergies Allergy Verified 07/14/22 17:47 Vital Signs Vital Signs - 24 hr 07/16/22 09:19 07/16/22 13:46 07/16/22 19:42 Temperature 37.0 C 37.2 C Pulse Rate 75 63 62 Respiratory Rate 18 20 Blood Pressure 104/51 L 134/60 Pulse Oximetry 97 98 Oxygen Delivery 07/16/22 20:00 07/17/22 04:34 Temperature 36.6 C Pulse Rate 69 Respiratory Rate 18 Blood Pressure 157/74 H Pulse Oximetry 99 Oxygen Delivery Room Air Results Labs 07/17/22 05:02 07/17/22 05:02 Labs: Short CBC 07/17/22 Range/Units 05:02 WBC 8.5 (4.5-10.0) K/mm3 Hgb 12.2 L (14.0-18.0) g/dL Hct 38.1 L (42.0-52.0) % Plt Count 262 (150-375) k/mm3 BMP 07/17/22 05:02 Sodium 136 L Potassium 4.6 Chloride 106 Carbon Dioxide 25 BUN 32 H Creatinine 1.60 H Glucose 75 Calcium 7.9 L Cardiac Enzymes 07/17/22 Range/Units 04:57 Total Creatine Kinase 92165 H (55-170) U/L Liver Function 07/17/22 Range/Units 05:02 Total Bilirubin 0.6 (0.2-1.3) mg/dL AST 347 H (17-59) U/L ALT 317 H (6-50) U/L Alkaline Phosphatase 64 (38-126) U/L Albumin 3.4 L (3.5-5.1) g/dL
[2022-07-17] MEDS: THIAMINE HCL 100 MG TABLET PO (09:30)
[2022-07-17] MEDS: LORATADINE 10 MG TABLET PO (09:30)
[2022-07-17 09:31] VITALS: PULSE 66
[2022-07-17] MEDS: METOPROLOL SUCCINATE EXT REL 50 MG TABCR PO (09:31)
--- NOTE | 2022-07-17 10:25 | WPDNEURCNPN ---
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 Acosta is an 81 year old male with a history of HTN, HLD presenting with one month history of proximal muscle weakness in the setting of significant elevation in ALT/AST, CK, LDH, strongly suggestive of myopathic process. Additional evaluation is significant for elevated inflammatory markers -- could be inflammatory/autoimmune myositis especially considering lack of improvement in CK with aggressive hydration. Patient was taking statin which has since been discontinued -- statin induced myopathy is also a consideration. - Will send extended myositis specific antibody panel - Additional testing including anti-Ro/SSA, anti La/SSB, anti-Sm, Anti-MANAGER [employer], COVID test, and HIV - Aldolase level, BORIS, anti-Lorin, ANCA, Cryoglobulin pending - Discussed empirically starting high dose steroids (Solumedrol 500mg BID x 3-5 days) in the event that this is an inflammatory process -- patient is agreeable - Recommend working towards transfer to a tertiary center, especially if there is no improvement with steroids -- may need other therapies/investigation such as IVIG, biologics, muscle biopsy if no improvement Consult date: 07/18/22 Reason for consult: Concern for myopathy HPI: Destin Acosta is a 81 year old male with a history of hypertension, hyperlipidemia, peripheral artery disease presenting due to one month history of progressive muscle weakness. Patient was recommended to go to the emergency department by his PCP after he was found to have elevated liver enzymes and creatinine on his most recent lab work. AST/ALT was 449/358 which is uptrending from prior lab values. His UA showed 3+ protein and 3+ blood with trace leukocyte esterase. His hepatitis panel was negative. CT abdomen pelvis showed bilateral nonobstructive nephrolithiasis, infrarenal abdominal aortic aneurysm and possible cholelithiasis. CXR showed nodule in right lower lung, concerning for primary bronchogenic carcinoma, although CT chest was read as old granulomatous disease. Patient does not had any prior history of alcohol abuse. He does have a 40lb history of weight loss over the past year. Initial CK levels were >16,000, and there has not been any significant reduction since then. Today's CK level is also >16,000 despite him receiving aggressive hydration.. Elevated liver enzymes thought to be secondary to rhabdomyolysis. Patients statin has been discontinued. He had been taking it for about six months. Aldolase level, BORIS, anti-Lorin, ANCA, Cryoglobulin has been obtained as is pending. Electrolytes have been normal, including magnesium, although most recent calcium level is only slight decreased (7.9). Inflammatory markers are elevated (ESR 48, CRP 1.6), and LDH is elevated as well -- 1226. Hepatitis panel was normal. On further interview with patient, he reports that the weakness in his lower extremities actually started about 1.5 years ago, but worsened about a month ago. He has also started to have weakness in his upper extremities that started a week ago. He notes a hard time lifting his legs and arms. He had a diarrheal illness about a month ago and then went to [place]. He denies any other illnesses in the past few months. He has had ongoing numbness and tingling in his lower extremities for the past 1.5 years as well. He denies any dysphagia, dysarthria, ptosis, shortness of breath. The only rash that he had was on his back in fall 2022 which was treated with steroids. He denies any skin changes in his [facility]
[2022-07-17 11:27] VITALS: BMI 24.1
--- NOTE | 2022-07-17 13:36 | PM.IMPN ---
Progress Note: A&P Assessment and Plan (1) Weakness: Code(s): R53.1 - Weakness Status: Acute Assessment and Plan: Significant proximal muscle weakness. CK ordered by GI earlier today reaching the presenting diagnosis of rhabdomyolysis. Underlying etiology is unknown however will Discontinue statin use. Thyroid function is normal IV hydration to continue and monitor CK level PT OT to see Continue to monitor CK level Neurology has been consulted and myositis panel has been ordered (2) Elevated liver enzymes: Code(s): R74.8 - Abnormal levels of other serum enzymes Status: Acute Assessment and Plan: Hold statin MRCP is the patient does have a history of cholelithiasis. Bilirubin and ALP is normal choledocholithiasis less suspected However he is claustrophobic and hesitant in getting the MRCP done. MRCP done with cholelithiasis with no choledocholithiasis. (3) Renal insufficiency: Code(s): N28.9 - Disorder of kidney and ureter, unspecified Status: Acute Assessment and Plan: Hold lisinopril. Continue with IV fluids and monitor CT negative for hydronephrosis Could be related to underlying rhabdomyolysis (4) Hypertension: Code(s): I10 - Essential (primary) hypertension Status: Acute Assessment and Plan: Continue with metoprolol on hold lisinopril due to the acute renal failure. (5) Hyperlipidemia: Code(s): E78.5 - Hyperlipidemia, unspecified Status: Acute Assessment and Plan: Holding statin due to his elevated liver enzymes. (6) Peripheral arterial disease: Code(s): I73.9 - Peripheral vascular disease, unspecified Status: Acute Assessment and Plan: Continue with current treatment. (7) Aneurysm: Code(s): I72.9 - Aneurysm of unspecified site Status: Acute Assessment and Plan: 1. No CT correlate for the patient's symptoms. 2. Bilateral nonobstructing nephrolithiasis. 3. Findings consistent with mesenteric panniculitis. 4. 3.1 cm fusiform infrarenal abdominal aortic aneurysm. 5. Possible cholelithiasis. The patient will need to be monitored outpatient. Plan Cirrhosis of liver: New diagnosis no use of alcohol. Hepatitis panel is negative. ferritin normal. Loss of weight over 40 lb over a year. CT chest negative for any suspicious lesions Diarrhea ESR CRP elevated Stool studies negative so far Subjective Date/time seen: 07/17/22 13:36 Interval history: Chart reviewed. Progressive weakness over the past month ir to. LFTs elevated unclear etiology. No history of alcohol use. Ongoing diarrhea for few months. Progressive proximal muscle weakness reported elevated creatinine which has been worsening creatinine of 2.2 prior level reported 1.6. Been started on IV fluids. Feels better. CK level came back very elevated. Ultrasound liver with cirrhosis 07/16/2022 no overnight events. Feeling stronger. Weakness has improved. IV fluid is ongoing. No shortness of breath or chest pain 07/17/2022 no overnight events. Weakness is improved. CK level slightly better today. Wants to go home. Review of Systems Review of Systems: All systems reviewed & are unremarkable except as noted in HPI and below Exam Narrative: General appearance: Well-developed, well-nourished Skin: Normal color no rash Head: Normocephalic, nontraumatic Eyes: Clear conjunctiva ENT: Oropharynx normal, ears normal, nose normal Neck: Supple, nontender Chest and respiratory: Airway patent, no respiratory distress, no accessory muscle use Heart: Regular rate/rhythm Abdomen: Soft, nontender, no organomegaly, quiet bowel sounds Vascular: Normal peripheral pulses, normal capillary refill. 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 Objective Data Vital Signs Vital Signs: Vital Signs - 24 hr 0
[2022-07-17 14:00] VITALS: BP 170/62; PULSE 61; RESP 18; TEMP 36.8; O2SAT 98
[2022-07-17 20:32] VITALS: BP 175/61; PULSE 62; RESP 18; TEMP 36.8; O2SAT 99
[2022-07-17] MEDS: MELATONIN 5 MG TABLET 10 MG PO (21:03)
[2022-07-17] MEDS: hydrALAZINE HCL 20 MG/ML VIAL 10 MG IV PUSH ×2 (21:34→22:44)
[2022-07-17 22:09] VITALS: BP 172/67
[2022-07-17 23:29] VITALS: BP 166/67
[2022-07-18 05:01] VITALS: BP 167/75; PULSE 87; RESP 17; TEMP 36.8; O2SAT 98
[2022-07-18] MEDS: SODIUM CHLORIDE 0.9% IV 1,000 ML 125 ML IV CONT (05:02)
[2022-07-18 06:17] LABS: Basophils Percent Auto 0.4 % (0.2-1.2); Eosinophils Absolute Auto 0.2 K/mm3 (0-0.3); Eosinophils Percent Auto 1.7 % (0-4.4); Hematocrit 39.7 % (42.0-52.0); Hemoglobin 12.9 g/dL (14.0-18.0); Immature Granulocyte Absolute 0.04 K/mm3 (0.00-0.031); Immature Granulocyte Percent A 0.4 % (0-0.5); Lymphocytes Absolute Auto 0.98 K/mm3 (0.9-3.2); Lymphocytes Percent Auto 9.4 % (18.3-44.2); Mean Corpuscular HGB Conc 32.5 g/dl (32-36); Mean Corpuscular Hemoglobin 30.4 pg (26-34); Mean Corpuscular Volume 93.4 fl (80-100); Mean Platelet Volume 11.9 fl (7.4-10.4); Monocytes Absolute Auto 0.9 K/mm3 (0.1-0.6); Monocytes Percent Auto 8.7 % (2.6-8.5); Neutrophils Absolute Auto 8.3 K/mm3 (1.3-6.7); Neutrophils Percent Auto 79.4 % (45.5-73.1); Platelet Count Result 282 k/mm3 (150-375); Red Blood Count 4.25 M/mm3 (4.6-6.20); Red Cell Distribution Width 14.6 % (11.5-14.5); White Blood Count 10.4 K/mm3 (4.5-10.0)
[2022-07-18 06:34] LABS: Alanine Aminotransferase 344 U/L (6-50); Albumin Level 3.6 g/dL (3.5-5.1); Alkaline Phosphatase 77 U/L (38-126); Anion Gap 4 mmol/L (8-16); Aspartate Amino Transferase 371 U/L (17-59); Bilirubin,Total 0.5 mg/dL (0.2-1.3); Blood Urea Nitrogen 25 mg/dL (9-20); Calcium 8.3 mg/dL (8.4-10.2); Carbon Dioxide 27 mmol/L (22-30); Chloride 106 mmol/L (98-107); Estimated CRCL calculation 35 ml/min; Estimated Glomerular Filt Rate 49; Glucose 89 mg/dL (65-110); Potassium 4.1 mmol/L (3.4-5.0); Sodium 137 mmol/L (137-145)
[2022-07-18 07:43] LABS: Creatine Kinase > 16000 U/L (55-170)
[2022-07-18 08:10] VITALS: PULSE 82
[2022-07-18] MEDS: METOPROLOL SUCCINATE EXT REL 50 MG TABCR PO (08:10)
[2022-07-18] MEDS: THIAMINE HCL 100 MG TABLET PO (08:10)
[2022-07-18] MEDS: LORATADINE 10 MG TABLET PO (08:11)
--- NOTE | 2022-07-18 10:21 | PM.IMPN ---
Progress Note: A&P Assessment and Plan (1) Weakness: Code(s): R53.1 - Weakness Status: Acute Assessment and Plan: Significant proximal muscle weakness. CK ordered by GI earlier today reaching the presenting diagnosis of rhabdomyolysis. Underlying etiology is unknown however will Discontinue statin use. Thyroid function is normal IV hydration to continue and monitor CK level PT OT to see Continue to monitor CK level Neurology has been consulted and myositis panel has been ordered May need a muscle biopsy to ventrally diagnose Consideration of steroid Will stop IV fluid today as is more volume overloaded Give a dose of Lasix (2) Elevated liver enzymes: Code(s): R74.8 - Abnormal levels of other serum enzymes Status: Acute Assessment and Plan: Hold statin MRCP is the patient does have a history of cholelithiasis. Bilirubin and ALP is normal choledocholithiasis less suspected However he is claustrophobic and hesitant in getting the MRCP done. MRCP done with cholelithiasis with no choledocholithiasis. (3) Renal insufficiency: Code(s): N28.9 - Disorder of kidney and ureter, unspecified Status: Acute Assessment and Plan: Hold lisinopril. Continue with IV fluids and monitor CT negative for hydronephrosis Could be related to underlying rhabdomyolysis CK level continues to be elevated significantly Will give a dose of Lasix for volume overload (4) Hypertension: Code(s): I10 - Essential (primary) hypertension Status: Acute Assessment and Plan: Continue with metoprolol on hold lisinopril due to the acute renal failure. (5) Hyperlipidemia: Code(s): E78.5 - Hyperlipidemia, unspecified Status: Acute Assessment and Plan: Holding statin due to his elevated liver enzymes. (6) Peripheral arterial disease: Code(s): I73.9 - Peripheral vascular disease, unspecified Status: Acute Assessment and Plan: Continue with current treatment. (7) Aneurysm: Code(s): I72.9 - Aneurysm of unspecified site Status: Acute Assessment and Plan: 1. No CT correlate for the patient's symptoms. 2. Bilateral nonobstructing nephrolithiasis. 3. Findings consistent with mesenteric panniculitis. 4. 3.1 cm fusiform infrarenal abdominal aortic aneurysm. 5. Possible cholelithiasis. The patient will need to be monitored outpatient. Plan Cirrhosis of liver: New diagnosis no use of alcohol. Hepatitis panel is negative. ferritin normal. Loss of weight over 40 lb over a year. [address] chest negative for any suspicious lesions Diarrhea ESR CRP elevated Stool studies negative so far Subjective Date/time seen: 07/18/22 10:21 Interval history: Chart reviewed. Progressive weakness over the past month ir to. LFTs elevated unclear etiology. No history of alcohol use. Ongoing diarrhea for few months. Progressive proximal muscle weakness reported elevated creatinine which has been worsening creatinine of 2.2 prior level reported 1.6. Been started on IV fluids. Feels better. CK level came back very elevated. Ultrasound liver with cirrhosis 07/16/2022 no overnight events. Feeling stronger. Weakness has improved. IV fluid is ongoing. No shortness of breath or chest pain 07/17/2022 no overnight events. Weakness is improved. CK level slightly better today. Wants to go home. 07/18/2022 patient feels more weak today. His legs are very swollen which started since yesterday evening. Discussed with neurologist. Denies any shortness of breath or chest pain. mentions not able to take care of him at home at this stays Review of Systems Review of Systems: All systems reviewed & are unremarkable except as noted in HPI and below Exam Narrative: General appearance: Well-developed, well-nourished Skin: Normal color no rash Head: Normocephalic, nontraumatic Eyes: Clear conjunctiva ENT: Oropharynx normal, ears normal, n
[2022-07-18] MEDS: FUROSEMIDE INJ 40 MG/4 ML VIAL IV PUSH (10:46)
--- NOTE | 2022-07-18 11:15 | PM.CNNEP ---
Assessment and Plan Assessment and plan (1) Rhabdomyolysis: Code(s): M62.82 - Rhabdomyolysis Status: Acute Assessment and Plan: CPK level quite elevated as noted by AM labs off IVFs due to concerns of volume overload could consider adding back and force diurese with diuretics holding statin myopathy work-up in progress follow trend of CPK follow renal function and UOP closely (2) CORONA (acute kidney injury): Code(s): N17.9 - Acute kidney failure, unspecified Status: Acute Assessment and Plan: clinically improving unclear what baseline creatinine is (no recent labs to compare to...) however, given age, HTN, vascular disease...suspect he may have sone underlying renal insufficiency BERNADETTE-I on hold follow repeat labs and UOP (3) Hypertension: Code(s): I10 - Essential (primary) hypertension Status: Chronic Assessment and Plan: slightly elevated however, BERNADETTE-I on hold follow trend for now I will continue to follow the patient with you while he remains hospitalized and make further recommendations during his hospitalization. Thank you for allowing me to participate in the care of this patient. History of Present Illness Reason for Consult Consult date: 07/18/22 Reason for consult: acute renal failure and Other (rhabdomyolysis) Chief Complaint Chief complaint: Weakness/Elevated Liver Enzymes/Renal Insufficienc History of Present Illness Narrative: The patient is an 81-year-old male with a past medical history as outlined below who presented to [facility] Emergency room with complaints of generalized weakness. The patient recently saw a new primary care physician to establish care. At that time, he also complained of generalized weakness and he had routine blood work done for evaluation of this issue. Apparently, these blood test demonstrated elevated liver function tests as well as an elevated creatinine. He was instructed by his PCP to go to the emergency room for further assessment. Workup and evaluation in the emergency room confirmed the patient's symptoms of generalized weakness but he otherwise appears to be hemodynamically stable. Repeat labs confirmed his elevated liver function test as well as his elevated creatinine. He reports no new medications other than a new cholesterol medicine which was started about six months ago. His urinalysis was significant for cloudy appearance, 3+ protein as well as 3+ blood and trace leukocyte esterase. Acute hepatitis panel was negative. A CT scan of his abdomen pelvis was done which demonstrated bilateral nonobstructive nephrolithiasis, mesenteric panniculitis, possible cholelithiasis, and a 3.1 cm fusiform infrarenal abdominal aortic aneurysm. His chest x-ray demonstrated a nodule in the right lower lung zone. He was initiated on IV fluids and subsequently admitted to the hospital for further evaluation and therapy. Since his admission, with IV fluid resuscitation, his renal function has improved but he continues to have issues and problems with generalized weakness. Subsequent testing has also demonstrated an extremely elevated CPK consistent with what appears to be rhabdomyolysis. Furthermore, he has been seen by Neurology on the concern that he may have of myopathy to explain both the elevated CPK as well as his weakness. His IV fluids have been discontinued due to concerns of volume overload and has been dosed with Lasix today. Renal consultation was requested due to his acute kidney injury as well as his rhabdomyolysis. As already mentioned above, his renal function has improved since admission. His creatinine was 2.2 mg/dL and is down to 1.4 mg/dL by labs done this morning. However, his CPK is quite elevated as noted by a.m. labs. Other than the aforementioned statin medication that was initiated six months ago, no other new medications have been started recently. I am unclear on his physical st
[2022-07-18 14:00] VITALS: BP 130/60; PULSE 73; RESP 16; TEMP 36.8; O2SAT 97
[2022-07-18] MEDS: methylPREDNISolone SOD SUCC 500 MG in DEXTROSE 5% 100 ML 200 MG IVPB (14:26)
[2022-07-18 14:54] LABS: HIV 1/2 Ab P24 Ag Result Negative (Negative)
[2022-07-18 17:13] LABS: SARS-CoV-2 RNA PCR Negative (Negative)
[2022-07-18 21:08] VITALS: BP 151/75; PULSE 73; RESP 18; TEMP 37; O2SAT 95
[2022-07-18] MEDS: PANTOPRAZOLE 40 MG TABLET PO (21:23)
[2022-07-18] MEDS: MELATONIN 5 MG TABLET 10 MG PO (21:23)
[2022-07-19] MEDS: methylPREDNISolone SOD SUCC 500 MG in DEXTROSE 5% 100 ML 200 MG IVPB ×2 (01:53→13:56)
[2022-07-19 04:31] LABS: H pylori Ag Stool Not Detected (Not Detected)
[2022-07-19 05:10] LABS: Hematocrit 39.8 % (42.0-52.0); Hemoglobin 13.2 g/dL (14.0-18.0); Mean Corpuscular HGB Conc 33.2 g/dl (32-36); Mean Corpuscular Hemoglobin 30.3 pg (26-34); Mean Corpuscular Volume 91.3 fl (80-100); Mean Platelet Volume 11.8 fl (7.4-10.4); Platelet Count Result 282 k/mm3 (150-375); Red Blood Count 4.36 M/mm3 (4.6-6.20); Red Cell Distribution Width 14.4 % (11.5-14.5); White Blood Count 10.2 K/mm3 (4.5-10.0)
[2022-07-19 05:37] VITALS: BP 192/66; PULSE 80; RESP 17; TEMP 36.7; O2SAT 99
[2022-07-19] MEDS: hydrALAZINE HCL 20 MG/ML VIAL 10 MG IV PUSH (05:37)
[2022-07-19 05:46] LABS: Alanine Aminotransferase 321 U/L (6-50); Albumin Level 3.3 g/dL (3.5-5.1); Alkaline Phosphatase 68 U/L (38-126); Anion Gap 2 mmol/L (8-16); Aspartate Amino Transferase 342 U/L (17-59); Bilirubin,Total 0.5 mg/dL (0.2-1.3); Blood Urea Nitrogen 26 mg/dL (9-20); Calcium 8.5 mg/dL (8.4-10.2); Carbon Dioxide 33 mmol/L (22-30); Chloride 101 mmol/L (98-107); Estimated CRCL calculation 35 ml/min; Estimated Glomerular Filt Rate 49; Glucose 149 mg/dL (65-110); Magnesium 1.7 mg/dL (1.6-2.3); Potassium 4.1 mmol/L (3.4-5.0); Sodium 136 mmol/L (137-145)
[2022-07-19 05:59] LABS: Anisocytosis 1+ (NORMAL); Band Neutrophils Percent 18 % (0-6); Lymphocytes Absolute Manual 0.71 K/mm3 (1.1-4.5); Monocytes Percent Manual 1 % (3-9); Myelocytes Percent 1 %; Neutrophils Absolute Manual 9.28 K/mm3 (1.3-6.7); Neutrophils Percent Manual 73 % (46-73); Platelet Estimate Adequate (Adequate); Total Cells Counted 100
[2022-07-19 06:00] LABS: Burr Cells 2+ (NORMAL); Poikilocytosis 2+ (NORMAL); Schistocytes None Seen (NORMAL)
[2022-07-19 06:10] VITALS: BP 114/52
[2022-07-19] MEDS: PANTOPRAZOLE 40 MG TABLET PO (09:04)
[2022-07-19 09:06] VITALS: PULSE 96
[2022-07-19] MEDS: METOPROLOL SUCCINATE EXT REL 50 MG TABCR PO (09:06)
[2022-07-19] MEDS: LORATADINE 10 MG TABLET PO (09:06)
[2022-07-19] MEDS: THIAMINE HCL 100 MG TABLET PO (09:08)
--- NOTE | 2022-07-19 09:43 | WPDNEUROPN ---
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 Acosta is an 81 year old male with a history of HTN, HLD presenting with one month history of proximal muscle weakness in the setting of significant elevation in ALT/AST, CK, LDH, strongly suggestive of myopathic process. Additional evaluation is significant for elevated inflammatory markers -- could be inflammatory/autoimmune myositis especially considering lack of improvement in CK with aggressive hydration -- immune mediated necrotizing myopathy? Patient was taking statin which has since been discontinued -- statin induced myopathy is also a consideration. - Discussed empirically starting high dose steroids (Solumedrol 500mg BID x 3-5 days) in the event that this is an inflammatory process -- patient is agreeable - Recommend working towards transfer to a tertiary center, especially if there is no improvement with steroids -- may need other therapies/investigation such as IVIG, biologics, muscle biopsy if no improvement. Patient has been accepted to [facility], waiting on a bed - Extended myositis specific antibody panel pending (Lorin-1 Ab, Pl-7 Ab, Pl-12 Ab, EJ Ab, OJ Ab, SRP Ab, Mi-2 Alpha Ab, Mi-2 Beta Ab, MDA5 Ab, TIF1 Gamma Ab, NXP-2 Ab, HMGCR ab, cN-1A ab) - Additional testing pending: anti-Ro/SSA, anti La/SSB, anti-Sm, Anti-FROG FARMER, BORIS, anti-Lorin, ANCA, cryoglobulin Subjective Date/time seen: 07/19/22 09:43 Interval history: Destin Acosta is a 81 year old male with a history of hypertension, hyperlipidemia, peripheral artery disease presenting due to one month history of progressive muscle weakness. Patient was recommended to go to the emergency department by his PCP after he was found to have elevated liver enzymes and creatinine on his most recent lab work. AST/ALT was 449/358 which is uptrending from prior lab values. His UA showed 3+ protein and 3+ blood with trace leukocyte esterase. His hepatitis panel was negative. CT abdomen pelvis showed bilateral nonobstructive nephrolithiasis, infrarenal abdominal aortic aneurysm and possible cholelithiasis. CXR showed nodule in right lower lung, concerning for primary bronchogenic carcinoma, although CT chest was read as old granulomatous disease. Patient does not had any prior history of alcohol abuse. He does have a 40lb history of weight loss over the past year. Initial CK levels were >16,000, and there has not been any significant reduction since then. Today's CK level is also >16,000 despite him receiving aggressive hydration.. Elevated liver enzymes thought to be secondary to rhabdomyolysis. Patients statin has been discontinued. He had been taking it for about six months. Aldolase level, BORIS, anti-Lorin, ANCA, Cryoglobulin, Sjogren's ab, extended myositis antibody panel has been obtained as is pending. Electrolytes have been normal, including magnesium, although most recent calcium level is only slight decreased (7.9). Inflammatory markers are elevated (ESR 48, CRP 1.6), and LDH is elevated as well -- 1226. Hepatitis panel was normal. On further interview with patient, he reports that the weakness in his lower extremities actually started about 1.5 years ago, but worsened about a month ago. He has also started to have weakness in his upper extremities that started a week ago. He notes a hard time lifting his legs and arms. He had a diarrheal illness about a month ago and then went to [place]. He denies any other illnesses in the past few months. He has had ongoing numbness and tingling in his lower extremities for the past 1.5 years as well. He denies any dysphagia, dysarthria, ptosis, shortness of breath. The only r
[2022-07-19 11:05] LABS: Creatine Kinase 13637 U/L (55-170)
--- NOTE | 2022-07-19 12:27 | PM.IMPN ---
Progress Note: A&P Assessment and Plan (1) Weakness: Code(s): R53.1 - Weakness Status: Acute Assessment and Plan: Significant proximal muscle weakness. CK ordered by GI earlier today reaching the presenting diagnosis of rhabdomyolysis. Underlying etiology is unknown however will Discontinue statin use. Thyroid function is normal IV hydration to continue and monitor CK level PT OT to see Continue to monitor CK level Neurology has been consulted and myositis panel has been ordered May need a muscle biopsy to ventrally diagnose Consideration of steroid Will stop IV fluid today as is more volume overloaded Give a dose of Lasix 07/19/2022 interval history: Patient with generalized weakness suspect muscular injury etiology uncertain seen neurology started the patient on high-dose steroid and workup is in progress, discussed with neurologist will continue present management, patient states today is feeling much not as weak and pain is also getting tolerable, patient CK levels are trending down patient is accepted at [facility] once a bed is available will transfer the patient, (2) Elevated liver enzymes: Code(s): R74.8 - Abnormal levels of other serum enzymes Status: Acute Assessment and Plan: Hold statin MRCP is the patient does have a history of cholelithiasis. Bilirubin and ALP is normal choledocholithiasis less suspected However he is claustrophobic and hesitant in getting the MRCP done. MRCP done with cholelithiasis with no choledocholithiasis. (3) Renal insufficiency: Code(s): N28.9 - Disorder of kidney and ureter, unspecified Status: Acute Assessment and Plan: Hold lisinopril. Continue with IV fluids and monitor CT negative for hydronephrosis Could be related to underlying rhabdomyolysis CK level continues to be elevated significantly Will give a dose of Lasix for volume overload (4) Hypertension: Code(s): I10 - Essential (primary) hypertension Status: Acute Assessment and Plan: Continue with metoprolol on hold lisinopril due to the acute renal failure. (5) Hyperlipidemia: Code(s): E78.5 - Hyperlipidemia, unspecified Status: Acute Assessment and Plan: Holding statin due to his elevated liver enzymes. (6) Peripheral arterial disease: Code(s): I73.9 - Peripheral vascular disease, unspecified Status: Acute Assessment and Plan: Continue with current treatment. (7) Aneurysm: Code(s): I72.9 - Aneurysm of unspecified site Status: Acute Assessment and Plan: 1. No CT correlate for the patient's symptoms. 2. Bilateral nonobstructing nephrolithiasis. 3. Findings consistent with mesenteric panniculitis. 4. 3.1 cm fusiform infrarenal abdominal aortic aneurysm. 5. Possible cholelithiasis. The patient will need to be monitored outpatient. Plan Cirrhosis of liver: New diagnosis no use of alcohol. Hepatitis panel is negative. ferritin normal. Loss of weight over 40 lb over a year. CT chest negative for any suspicious lesions Diarrhea ESR CRP elevated Stool studies negative so far Subjective Date/time seen: 07/19/22 12:27 Interval history: Chart reviewed.? Progressive weakness over the past month ir to.? LFTs elevated unclear etiology.? No history of alcohol use.? Ongoing diarrhea for few months.? Progressive proximal muscle weakness reported elevated creatinine which has been worsening creatinine of 2.2 prior level reported 1.6.? Been started on IV fluids.? Feels better.? CK level came back very elevated.? Ultrasound liver with cirrhosis 07/16/2022 no overnight events.? Feeling stronger.? Weakness has improved.? IV fluid is ongoing.? No shortness of breath or chest pain 07/17/2022 no overnight events.? Weakness is improved.? CK level slightly better today.? Wants to go home. 07/18/2022 patient feels more weak today.? His legs are very swollen which started since yesterday darrel
[2022-07-19 13:46] VITALS: BP 165/60; PULSE 70; RESP 18; TEMP 36.4; O2SAT 98
--- NOTE | 2022-07-19 13:50 | PM.PNNEP ---
Progress Note: A&P Assessment and Plan (1) Rhabdomyolysis: Code(s): M62.82 - Rhabdomyolysis Status: Acute Assessment and Plan: CPK level quite elevated but downtrending off IVFs due to concerns of volume overload could consider adding back and force diurese with diuretics holding statin myopathy work-up in progress -- initiated on steroids by Neurology follow trend of CPK follow renal function and UOP closely (2) CORONA (acute kidney injury): Code(s): N17.9 - Acute kidney failure, unspecified Status: Acute Assessment and Plan: clinically improving unclear what baseline creatinine is (no recent labs to compare to...) however, given age, HTN, vascular disease...suspect he may have sone underlying renal insufficiency BERNADETTE-I on hold follow repeat labs and UOP (3) Hypertension: Code(s): I10 - Essential (primary) hypertension Status: Chronic Assessment and Plan: slightly elevated however, BERNADETTE-I on hold follow trend for now Will continue to follow. Subjective Date/time seen: 07/19/22 13:50 Interval history: Follow-up for acute kidney injury/acute renal failure and elevated CPK (possible rhabdomyolysis). Initiated on high dose steroids by Neurology due to concerns of possible muscle inflammatory process being present and well as likely transfer for further/ongoing evaluation; renal function stable and making urine (albeit in response to lasix) with CPK level downtrending; states he feels a bit better today at the time of my visit but weakness persists. Exam Narrative: General: elderly and frail male in NAD Heart: normal S1 and S2; no rub Lungs: clear to auscultation Abdomen: soft, nontender, nondistended, positive bowel sounds Extremities: no cyanosis or clubbing; trace edema Skin: warm and dry Objective Data Vital Signs Vital Signs: Vital Signs Temp Pulse Resp BP Pulse Ox O2 Del Method 07/19/22 13:46 97.5 F L 70 18 165/60 H 98 07/19/22 09:10 Room Air 07/19/22 09:06 96 07/19/22 06:10 114/52 L 07/19/22 05:37 98.1 F 80 17 192/66 H 99 07/18/22 21:15 Room Air 07/18/22 21:08 98.6 F 73 18 151/75 H 95 Intake/Output Intake/Output: Intake & Output 07/16/22 07/17/22 07/18/22 07/19/22 23:59 23:59 23:59 23:59 Intake Total 1640 5260 3608 1346 Output Total 1625 1575 2625 1450 Balance 15 3685 983 -104 Meds/Results Medications: Active Medications Generic Name Dose Route Start Last Admin Trade Name Freq PRN Reason Stop Dose Admin Methylprednisolone Sodium 108 mls @ 200 mls/hr 07/18/22 14:00 07/19/22 14:36 Succinate 500 mg/ Dextrose IVPB 07/23/22 02:33 Infused Q12H PATITO Infusion Loratadine 10 mg 07/15/22 09:00 07/19/22 09:06 Loratadine 10 Mg Tablet PO 10 mg QAM PATITO Administration Melatonin 10 mg 07/15/22 21:00 07/18/22 21:23 Melatonin 5 Mg Tablet PO 10 mg QHS PATITO Administration Metoprolol Succinate 50 mg 07/15/22 09:00 07/19/22 09:06 Metoprolol Succinate Ext Rel 50 Mg Tabcr PO 50 mg DAILY PATITO Administration Pantoprazole Sodium 40 mg 07/18/22 21:00 07/19/22 09:04 Pantoprazole 40 Mg Tablet PO 40 mg Q12HR PATITO Administration Thiamine HCl 100 mg 07/15/22 09:00 07/19/22 09:08 Thiamine Hcl 100 Mg Tablet PO 100 mg QAM PATITO Administration Trazodone HCl 100 mg 07/15/22 04:46 07/16/22 23:09 Trazodone Hcl 50 Mg Tablet PO 50 mg QHS PRN Administration Sleep Radiology Results: ITS Impressions Chest X-Ray 07/14/22 12:56 IMPRESSION: 1. 1 cm nodule in right lower lung zone suspicious for primary bronchogenic carcinoma. Noncontrast chest CT is recommended (unless the nodule is included on the pending CT abdomen and pelvis). ADDENDUM: 07/14/22 7477 Comparison is made with the CT abdomen and pelvis from 07/14/2022. The nodule in right lower lung zone is calcified, consistent with old granu
[2022-07-19 14:14] LABS: Aldolase 88.1 U/L (<=8.1)
[2022-07-19 19:36] LABS: Ceruloplasmin 26 mg/dL (18-36)
[2022-07-19 19:38] VITALS: BP 164/63; PULSE 71; RESP 18; TEMP 36.4; O2SAT 96
[2022-07-19 21:12] LABS: Mitochondrial (M2) Ab (IgG) <=20.0 U (<=20.0)
--- NOTE | 2022-07-20 17:52 | PM.TDS ---
Transfer Discharge Sum: Prov Provider Date of admission: 07/16/22 13:09 Primary care physician: Herrera Davalos MD Admitting clinician: Shay Lucero MD Consults: 07/15/22 Care Coordination Consult Routine Comment: Reason for Consult:: Acute Rehab Consult Consult to Physician Routine Comment: Consulting Provider: Conrad Huffman call or contact centre team leader/MD group to consult: GI Reason for consultation: elevated liver enzymes Has provider been notified: Yes 07/16/22 Consult to Physician Routine Comment: Spoke w/ 0800 07/17 (, [place]) Consulting Provider: Veronica Harper call or contact centre team leader/ group to consult: neurology Reason for consultation: myopathy, proximal weakness Has provider been notified: Yes 07/18/22 Consult to Physician Routine Comment: Left voicemail 07/18 1036 (, [place]) Consulting Provider: Nils Kothari call or contact centre team leader/ group to consult: nephrology Reason for consultation: rhabdomyolysis Has provider been notified: Yes DS: Admitting Diagnosis Discharge Date 07/19/22 Admitting Diagnosis Muscular weakness Transfer Discharge Sum: Med Medications Active and Home Medications: Home Medications cetirizine 10 mg tablet (Zyrtec) 10 mg PO DAILY 06/14/22 [History Confirmed 07/14/22] melatonin 10 mg tablet 10 mg PO QHS 06/14/22 [History Confirmed 07/14/22] metoprolol succinate 50 mg tablet,extended release 24 hr 50 mg PO DAILY 06/14/22 [History Confirmed 07/14/22] rosuvastatin 40 mg tablet 40 mg PO HS 06/14/22 [History Confirmed 07/14/22] tadalafil 20 mg tablet (Cialis) 20 mg PO DAILY PRN sexual activity #10 tabs 06/14/22 [Rx Confirmed 07/14/22] trazodone 100 mg tablet 100 mg PO QHS PRN Sleep 06/14/22 [History Confirmed 07/14/22] lisinopril 20 mg tablet 20 mg PO DAILY 07/14/22 [History Confirmed 07/14/22] thiamine mononitrate (vit B1) 100 mg tablet 100 mg PO DAILY 07/14/22 [History Confirmed 07/14/22] Transfer Discharge Sum: Hosp Hospital Course Hospital course: Destin Acosta is a 81 year old male ?Patient with generalized weakness suspect muscular injury etiology uncertain seen neurology started the patient on high-dose steroid and workup is in progress, discussed with neurologist will continue present management,? patient states today is feeling much not as weak and pain is also getting tolerable, patient CK levels are trending down patient is accepted at [facility] once a bed is available will transfer the patient. Patient is being transferred [facility] for further evaluation. Time Spent with Patient Time attestation: Total time spent providing and/or coordinating transfer services: Exam Narrative: Patient is comfortable, NAD HEENT: eyes are clear and none icteric LUNGS: Normal respiratory effort ABD: Not distended Lower extremities: no edema SKIN: nonjaundiced Neuro: grossly intact. DS: Data Data Completed and Pending Labs on day of discharge: Labs from last 24 hours 07/17/22 07/16/22 05:02 05:24 Ceruloplasmin 26 Cryoglobulin % TNP Cryoglobulin Qualit TNP Mitochondria M2 IgG Ab <=20.0
[2022-07-23 18:26] LABS: RNP Antibodies >8.0; SS-A <1.0; SS-B <1.0
[2022-07-24 11:16] LABS: JO 1 Antibody <1.0
[2022-07-24 21:42] LABS: Pancreatic Elastase, Stool >500 mcg/g
== END 2022-07-19 19:40 | disposition short-term general hospital (02) | DRG 92 ==
LOC: ANHED 14:57 → ANH2MED 15:30
PROVIDERS: Internal Medicine Gastroenterology; Nurse Practitioner; Student in an Organized Health Care Education/Training Program; Admitting Provider Internal Medicine; Emergency Provider Emergency Medicine; PCP Family Medicine; Visit Provider Family Medicine
DX: G72.9 Myopathy, unspecified (principal); M62.82 Rhabdomyolysis; N20.0 Calculus of kidney; R53.1 Weakness; R74.8 Abnormal levels of other serum enzymes; N28.9 Disorder of kidney and ureter, unspecified; I10 Essential (primary) hypertension; E78.5 Hyperlipidemia, unspecified; I73.9 Peripheral vascular disease, unspecified; K74.60 Unspecified cirrhosis of liver; Z20.822 Contact with and (suspected) exposure to COVID-19; Z87.891 Personal history of nicotine dependence; Z79.899 Other long term (current) drug therapy
CPT/HCPCS: 36415; 71045; 71250; 74176; 74183; 76376; 80053; 80074; 81001; 82085; 82104; 82390; 82550; 82595; 82653; 82728; 83520; 83605; 83615; 83735; 84439; 84443; 84480; 85025; 85652; 86038; 86140; 86235; 86703; 87045; 87269; 87272; 87338; 87427; 87635; 89055; 93005; 96361; 96374; 97110; 97161; 97165; 97530; 99285; A9270; A9577; G0378; G0432; J0360; J1940; J2060; J2930; J7030

== ENCOUNTER 2023-03-20 15:18 | Inpatient (IN) | payer MEDICARE, SELFPAY ==
[2023-03-20] VITALS (12 sets, daily range): BP systolic 122–233; BP diastolic 60–93; PULSE 58–70; RESP 16–24; TEMP 36.4–37.2; O2SAT 87–100; BMI 28.0
--- NOTE | ~2023-03-20 | NM_ITS ---
EXAMINATION: NM lung vent and perfusion DATE: 03/22/2023 14:05 INDICATION: Hypoxia TECHNIQUE: 17.358 mCi xenon-133 by inhalation and 5 mCi Tc-99m MAA by intravenous route. Scintigraph ic images of the chest were obtained. COMPARISON: Chest radiograph dated 03/22/2023 FINDINGS: There is homogeneous radiotracer activity throughout the lungs on the single breath ventilation seque nce. Large unmatched perfusion defect involving the medial and lateral segments of the right middle l obe and the right upper lobe. Additional moderate to large unmatched perfusion defect involving the l ateral and posterior basilar segments of the right and left lower lobes. Moderate-sized unmatched per fusion defect involving the posterior aspect of the apical posterior segment of the left upper lobe. There are no corresponding airspace opacities with perfusion defects. IMPRESSION: 1. High probability for pulmonary embolism. Findings were discussed with Natalie Morrison, the nurse ca ring for the patient, at 2:50 PM. Reviewed, dictated and finalized at location A. SHELLER MACHINE OPERATOR IMPRESSION: 1. High probability for pulmonary embolism. Findings were discussed with Natalie Morrison, the nurse caring for the patient, at 2:50 PM.
--- NOTE | ~2023-03-20 | CT_ITS ---
EXAMINATION: CT brain wo con DATE: 03/23/2023 23:24 INDICATION: Headache. Fall. TECHNIQUE: Computed tomography (CT) of the head was performed without intravenous contrast. The mA wa s adjusted according to patient size. Iterative reconstruction technique was employed. The dose-lengt h product was 681.00 mGy-cm. COMPARISON: None FINDINGS: There are old lacunar infarcts in the bilateral basal ganglia. There are scattered areas of low attenuation in the cerebral white matter. There is no intracranial hemorrhage, acute infarction, or abnormal intracranial mass lesion. The ventricles are normal in size. There are likely changes of ocular lens replacement surgeries. There is complete opacification of the maxillary sinuses, which a re small. There are surgical changes of anterior wall of left maxillary sinus. The mastoid air cells are normal. IMPRESSION: 1. Old lacunar infarcts in the bilateral basal ganglia. 2. Moderate nonspecific cerebral white matter disease, which likely represents chronic small vessel i schemic disease. Reviewed, dictated and finalized at location E. POT OPERATOR IMPRESSION: 1. Old lacunar infarcts in the bilateral basal ganglia. 2. Moderate nonspecific cerebral white matter disease, which likely represents chronic small vessel ischemic disease.
--- NOTE | ~2023-03-20 | XR_ITS ---
Clinical Indication: Hypoxia AP and lateral views of the chest: Comparison: 03/20/2023 Findings: Stable calcified right basilar granuloma. The lungs are otherwise clear, without evidence o f focal consolidation or pleural effusion. Cardiomediastinal silhouette is within normal limits. Bon es and soft tissues are unremarkable. Impression: No acute pulmonary abnormality. Reviewed, dictated and finalized at [facility]. ICAL BIOSTATISTICS DIRECTOR Impression: No acute pulmonary abnormality.
--- NOTE | ~2023-03-20 | XR_ITS ---
EXAMINATION: XR chest 2V Exam Date/Time: 03/20/2023 16:08 DRUM ATTENDANT HISTORY: SOB Comparison: 07/14/2022; CT chest 07/15/2022. RESULT: Lines, tubes, and devices: None. Lungs and pleura: Clear. Cardiomediastinal silhouette: Stable. Other: No acute osseous or upper abdominal finding. IMPRESSION: No acute cardiopulmonary process. Reviewed, dictated and finalized at location K. ATTENDANT
--- NOTE | ~2023-03-20 | US_ITS ---
EXAMINATION: US venous doppler LE RT DATE: 03/21/2023 14:49 INDICATION: Shortness of breath and right lower limb swelling and erythema. TECHNIQUE: Grayscale ultrasound images without and with compression and Doppler ultrasound images of the right lower extremity veins were obtained. COMPARISON: None. FINDINGS: There is noncompressible deep venous thrombosis in throughout the right femoral vein which appears ne tom occlusive on color Doppler approximately with large amount of loculated Doppler or distally. Occ lusive appearing noncompressible thrombus in the paired right peroneal veins. The visualized portions of right common femoral vein, profunda (deep) femoral vein, popliteal vein, posterior tibial veins a nd greater saphenous vein outflow are patent. IMPRESSION: 1. Deep venous thrombosis in the right femoral vein and in the right peroneal veins at the calf. Reviewed, dictated and finalized at location A. GLUER
--- NOTE | 2023-03-20 15:31 | ECG_ITS ---
Measurements Intervals [place] Rate: 60 P: 40 CA: 163 QRS: -24 QRSD: 94 T: -17 QT: 424 QTc: 425 Interpretive Statements SINUS RHYTHM BORDERLINE LEFT AXIS DEVIATION [QRS AXIS < -20] VOLTAGE CRITERIA FOR LVH [MEETS CRITERIA IN ONE OF: R(aVL), S(V1), R(V5), R(V5/V6)+S(V1)] NONSPECIFIC ST & T-WAVE ABNORMALITY COMPARED TO ECG 07/14/2022 13:34:01 SINUS RHYTHM NOW PRESENT Electronically Signed On 03-21-2023 15:01:22 TITLE CURATIVE SPECIALIST by Valerie Velasquez M.D.
--- NOTE | 2023-03-20 15:40 | ED.GENADULT ---
HPI - General Adult General Chief complaint: Shortness of Breath/Dyspnea <Eliseo Massey PA-C - Last Filed: 03/25/23 17:06> Stated complaint: SOB <Eliseo Massey PA-C - Last Filed: 03/25/23 17:06> Time Seen by Provider: 03/20/23 15:40 <Eliseo Massey PA-C - Last Filed: 03/25/23 17:06> Focused HPI: This is a an 82-year-old male presents to the ED with chief complaint of 2 weeks of this time exertion. Reports it is given ordered to be across the room without feeling very short of breath. Reports bilateral lower extremity edema that has been present for several years and does not seem to be too much worse than normal. He also reports that he was treated for possible pneumonia with antibiotics a couple weeks ago and feels that the cough is getting better. However he still states he has some pain in the right lateral chest whenever he coughs or breathes deeply. Denies chest pain, palpitations, nausea, vomiting, syncope. GENERAL: Well-appearing, well-nourished, and in no acute distress. HEAD: Normocephalic, atraumatic. CHEST: No respiratory distress. 95% room air. Questionable adventitious lung sound heard a right lower lung. HEART: Regular rate and rhythm. NEURO: Alert and oriented x3. MSK: Bilateral 4+ pitting edema to the ankles up to knee level. No erythema, warmth or tenderness. Patient screened in triage and initial orders placed. Additional care and disposition to be based upon diagnostic testing and treatment. <Eliseo Massey PA-C - Last Filed: 03/25/23 17:06> Focused HPI: This is a an 82-year-old male presents to the ED with chief complaint of 2 weeks of SOB with exertion. Reports it is given ordered to be across the room without feeling very short of breath. Reports bilateral lower extremity edema that has been present for several years and does not seem to be too much worse than normal. He also reports that he was treated for possible pneumonia with antibiotics a couple weeks ago and feels that the cough is getting better. However he still states he has some pain in the right lateral chest whenever he coughs or breathes deeply. Denies chest pain, palpitations, nausea, vomiting, syncope. GENERAL: Well-appearing, well-nourished, and in no acute distress. HEAD: Normocephalic, atraumatic. CHEST: No respiratory distress. 95% room air. Questionable adventitious lung sound heard a right lower lung. HEART: Regular rate and rhythm. NEURO: Alert and oriented x3. MSK: Bilateral 4+ pitting edema to the ankles up to knee level. No erythema, warmth or tenderness. Patient screened in triage and initial orders placed. Additional care and disposition to be based upon diagnostic testing and treatment. <Laura Santo MD - Last Filed: 03/25/23 17:39> Source: patient <Eliseo Massey PA-C - Last Filed: 03/25/23 17:06> Mode of arrival: ambulatory <Eliseo Massey PA-C - Last Filed: 03/25/23 17:06> Limitations: no limitations <Eliseo Massey PA-C - Last Filed: 03/25/23 17:06> Related Data Home medications: Home Medications Medication Instructions Recorded Confirmed cetirizine 10 mg tablet (Zyrtec) 10 mg PO DAILY 06/14/22 03/20/23 pantoprazole 40 mg tablet,delayed 40 mg PO QAM 07/31/22 03/20/23 release azathioprine 50 mg tablet 100 mg PO BID 03/20/23 03/20/23 paroxetine HCl 10 mg tablet 10 mg PO DAILY 03/20/23 03/20/23 <Eliseo Massey PA-C - Last Filed: 03/25/23 17:06> Allergies/adverse reactions: Allergies Allergy/AdvReac Type Severity Reaction Status Date / Time Cardcwb-NXF-ZfK Reductase AdvReac Severe rhabdomyolo Verified 03/20/23 16:59 Inhibitor sis <Eliseo Massey PA-C - Last Filed: 03/25/23 17:06> Review of Systems Review of Systems: All systems reviewed & are unremarkable except as noted in HPI and below <Laura Santo MD - Last Filed: 03/25/23 17:39> PMFSH Past Medical History Medical History: Medical History (Reviewed
[2023-03-20 16:16] LABS: Basophils Percent Auto 0.3 % (0.2-1.2); Eosinophils Percent Auto 0.1 % (0-4.4); Hematocrit 41.7 % (42.0-52.0); Hemoglobin 13.7 g/dL (14.0-18.0); Immature Granulocyte Absolute 0.07 K/mm3 (0.00-0.031); Immature Granulocyte Percent A 0.7 % (0-0.5); Lymphocytes Absolute Auto 0.31 K/mm3 (0.9-3.2); Lymphocytes Percent Auto 3.2 % (18.3-44.2); Mean Corpuscular HGB Conc 32.9 g/dl (32-36); Mean Corpuscular Hemoglobin 33.3 pg (26-34); Mean Corpuscular Volume 101.2 fl (80-100); Monocytes Absolute Auto 0.3 K/mm3 (0.1-0.6); Monocytes Percent Auto 3.1 % (2.6-8.5); Neutrophils Absolute Auto 8.9 K/mm3 (1.3-6.7); Neutrophils Percent Auto 92.6 % (45.5-73.1); Platelet Count Result 230 k/mm3 (150-375); Red Blood Count 4.12 M/mm3 (4.6-6.20); Red Cell Distribution Width 16.5 % (11.5-14.5); White Blood Count 9.6 K/mm3 (4.5-10.0)
[2023-03-20 16:26] LABS: Alanine Aminotransferase 21 U/L (6-50); Albumin Level 3.9 g/dL (3.5-5.1); Alkaline Phosphatase 75 U/L (38-126); Anion Gap 7 mmol/L (8-16); Aspartate Amino Transferase 31 U/L (17-59); Bilirubin,Total 1.2 mg/dL (0.2-1.3); Blood Urea Nitrogen 29 mg/dL (9-20); Calcium 9.5 mg/dL (8.4-10.2); Carbon Dioxide 28 mmol/L (22-30); Chloride 102 mmol/L (98-107); Estimated CRCL calculation 30 ml/min; Estimated Glomerular Filt Rate 45; Glucose 114 mg/dL (65-110); Potassium 4.4 mmol/L (3.4-5.0); Sodium 137 mmol/L (137-145)
[2023-03-20 16:33] LABS: NT Pro B Type Natriuretic Pept 5390 pg/mL (19.9-100)
--- NOTE | 2023-03-20 16:52 | PC.NURSE ---
Pt was 87% on room air w/ increased WOB noted. Pt placed on 2 L NC O2 and repositioned. O2 Sat 98%, RR 16.
[2023-03-20 17:22] LABS: NT Pro B Type Natriuretic Pept 5410 pg/mL (19.9-100)
[2023-03-20 17:39] LABS: Troponin I < 0.012 ng/mL (0.000-0.034)
--- NOTE | 2023-03-20 20:17 | ECG_ITS ---
Measurements Intervals [place] Rate: 67 P: 30 MI: 176 QRS: -24 QRSD: 82 T: -30 QT: 398 QTc: 422 Interpretive Statements SINUS RHYTHM BORDERLINE LEFT AXIS DEVIATION [QRS AXIS < -20] LEFT VENTRICULAR HYPERTROPHY AND ST-T CHANGE [VOLTAGE CRITERIA PLUS ST/T ABNORMALITY] COMPARED TO ECG 03/20/2023 15:49:57 NO SIGNIFICANT CHANGES Electronically Signed On 03-21-2023 15:06:38 LIMNOLOGIST by Valerie Velasquez M.D.
--- NOTE | 2023-03-20 20:31 | PM.IMHP ---
H&P: HPI History of Present Illness Date/Time: 03/20/23 20:31 Chief Complaint: sob Narrative: This is an 82-year-old male with past medical history significant for peripheral artery disease, hypertension, dyslipidemia, myopathy. patient presents to the emergency room due to shortness of breath worsening for the last month or so, bilateral lower extremity edema, denies chest pain, denies palpitations denies lightheadedness denies syncope or near-syncope, denies fevers rigors chills, no nausea no vomiting no diarrhea no abdominal pain. Preliminary workup was significant for brain natriuretic peptide above 5000. Patient has been admitted for further evaluation management and treatment EXAMINATION:? XR chest 2V Exam Date/Time:? 03/20/2023 16:08 WOMEN'S MINISTRY DIRECTOR HISTORY: SOB ? Comparison:? 07/14/2022; CT chest 07/15/2022. RESULT: Lines, tubes, and devices:? None. Lungs and pleura:? Clear. Cardiomediastinal silhouette:? Stable. Other:? No acute osseous or upper abdominal finding. ? IMPRESSION: No acute cardiopulmonary process. Review of Systems Review of Systems: shortness of breath, bilateral lower extremity swelling Constitutional: Constitutional: Denies chills, Denies fatigue, Denies fever(s), Denies malaise, Denies poor appetite and Denies weakness Eyes: Eyes: Denies change in vision ENT: Denies dysphagia and Denies odynophagia Cardiovascular: Cardiovascular: Denies chest pain, Reports leg edema, Denies lightheadedness, Denies radiating jaw, neck or arm pain, Denies palpitations, Reports dyspnea, Denies orthopnea and Denies paroxysmal nocturnal dyspnea Respiratory: Respiratory: Denies cough, Denies excessive phlegm production and Denies wheezing Gastrointestinal: Gastrointestinal: Denies abdominal pain, Denies dyspepsia, Denies heartburn, Denies diarrhea, Denies nausea and Denies vomiting Genitourinary: Genitourinary: Denies dysuria Musculoskeletal: Musculoskeletal: Denies muscle weakness Integumentary/Breasts: Skin/Breast: Denies rash Neurologic: Denies focal weakness and Denies Sensory deficit (Neuro) Psychiatric: Psychiatric: Reports no additional psychiatric complaints and Reports as per HPI Endocrine: Endocrine: Denies cold intolerance, Denies heat intolerance, Denies polyphagia, Denies polydipsia and Denies palpitations Hematologic/Lymphatic: Hematologic/Lymphatic: Reports no additional hematologic/lymphatic complaints and Reports as per HPI Allergic/Immunologic: Allergic/Immunologic: Reports no additional allergic/immunologic complaints and Reports as per HPI [facility] Past Medical History Medical History Erectile dysfunction Hyperlipidemia Hypertension Insomnia Myopathic disease Peripheral arterial disease Rhabdomyolysis Surgical History Surgical History 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 He is retired code status full code Smoking packs per day: 1.5 Smoking cigarettes per day: 30.0 Smoking status: Former smoker Alcohol intake: never Substance use: never Do You Feel Safe in your Home?: Yes Lack of Transportation: No Lack of Food: Never True Current Housing: I Have Housing Concerned About Future Housing: No Difficulty Paying Gas/Electric Bills: No Difficulty Paying for Meds: No Currently Unemployed: No Education: High School Diploma/GED Difficulty w/ Childcare or Family Care: No Living arrangements: with family Occupation/Education: retired Gender identity (if verbalized by the patient): Mal
[2023-03-20 20:59] LABS: Troponin I 0.014 ng/mL (0.000-0.034)
--- NOTE | 2023-03-20 21:23 | ADMGEN ---
This patient, Destin Acosta, was admitted to IMU Room 210-01. Patient/family oriented to hospital policies and general routines including ID bracelet, bed and alarms, visiting hours, pain management, procedures, bathroom and other care routines, personal items, smoking policy, room service/diet, and visiting hours. Information on how to activate the Rapid Response Team has been discussed. Patient/Family are encouraged to report perceived risks to care and to ask questions if they do not understand what they are told or what they should do.
[2023-03-20 22:44] LABS: Troponin I 0.014 ng/mL (0.000-0.034)
[2023-03-21] VITALS (22 sets, daily range): BP systolic 108–189; BP diastolic 59–96; PULSE 48–82; RESP 16–22; TEMP 35.8–36.7; O2SAT 94–99
--- NOTE | 2023-03-21 | ECHO_ITS ---
Patient Info Name: Destin Acosta Age: 82 years : 1940 Gender: Male Ht: 65 in Wt: 168 lbs BSA: 1.89 m2 HR: 61 bpm BP: 170 / 77 mmHg Heart Rhythm: Sinus Rhythm Technical Quality: Fair Exam Date: 03/21/2023 9:02 AM Exam Location: Echo Lab Patient Status: Inpatient Admit Date: 03/20/2023 Staff Ordering Physician: Virgil Nunez MD Locksmith: Attending Provider: Virgil Nunez MD Referring Physician: Enrique BENITES; Exam Type: CA echo doppler color flow Study Info Indications R06.02 - Shortness of breath Complete two-dimensional, color flow and Doppler transthoracic echocardiogram is performed. Summary 1. Complete two-dimensional, color flow and Doppler transthoracic echocardiogram is performed. 2. Left ventricular chamber dimension is normal. 3. Left ventricular systolic function is mildly reduced, estimated at 45-50%. 4. There is moderately increased left ventricular wall thickness. 5. The left ventricular diastolic function is grade I diastolic dysfunction. 6. Right ventricular systolic function is normal. 7. There is mild aortic valve regurgitation. 8. There is mild mitral valve regurgitation. Left Ventricle Left ventricular chamber dimension is normal. Left ventricular systolic function is mildly reduced, estimated at 45-50%. There is moderately increased left ventricular wall thickness. The left ventricular diastolic function is grade I diastolic dysfunction. Right Ventricle Right ventricular chamber dimension is normal. Right ventricular systolic function is normal. Left Atria Left atrial chamber dimension is normal. Right Atria Right atrial chamber dimension is normal. Atrial Septum Intact interatrial septum visualized by color flow imaging. Aortic Valve The aortic valve is trileaflet. There is no aortic valve stenosis. There is mild aortic valve regurgitation. There is mild aortic valve calcification. Pulmonic Valve The pulmonic valve is not well visualized. Mitral Valve There is mild mitral valve regurgitation. Tricuspid Valve There is trace tricuspid valve regurgitation. Pericardium/Pleural There is no pericardial effusion. Inferior Vena Cava Normal inferior vena cava with >50% collapse upon inspiration consistent with normal right atrial pressure, 3 mmHg. Aorta The aortic root size at the sinus of Valsalva is normal. Left Ventricular Outflow Tract Name Value Normal LVOT 2D LVOT Diameter 2.2 cm LVOT Doppler LVOT Peak Gradient 3 mmHg LVOT Mean Gradient 2 mmHg LVOT VTI 24 cm LVOT VTI/AV VTI Ratio 0.7 LVOT Stroke Volume 97 ml LVOT CO 5.6 l/min LVOT CI 2.9 l/min/m2 Pulmonic Valve Name Value Normal PV Doppler PV Peak Gradient 3 mmHg PV Regur
--- NOTE | 2023-03-21 07:59 | PM.IMPN ---
Progress Note: A&P Assessment and Plan (1) Congestive heart failure: Code(s): I50.9 - Heart failure, unspecified Status: Acute (2) Hypertension: Code(s): I10 - Essential (primary) hypertension Status: Chronic (3) Hyperlipidemia: Code(s): E78.5 - Hyperlipidemia, unspecified Status: Acute (4) Localized swelling of right lower extremity: Code(s): R22.41 - Localized swelling, mass and lump, right lower limb Status: Acute Plan A pleasant 82-year-old white male with a past medical history HTN, HLD, PAD, 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 Admitted on 03/20/2023 #RLE swelling - ordered doppler #CHF, mild decompensated, unspecified type -pending echocardiogram -continue Lasix mg IV b.i.d. -daily weights, fluid restriction 1.5 L per day, intake output strict, heart healthy diet #HTN -currently uncontrolled. -Continue home dose lisinopril 40 mg p.o. q.day -metoprolol has been decreased to 25 mg p.o. q.day -continue Lasix started this admission. Further tailoring depending on results of echocardiogram and response to Lasix FEN: Heart healthy diet. Fluid restriction. Saline lock IV GI prophylaxis: Not indicated DVT prophylaxis: Lovenox Lines: Peripheral IV Code Status: Full code Dispo: Stable Subjective Date/time seen: 03/21/23 07:59 Interval history: No acute overnight events. Patient has no shortness of breath although he reports his shortness of breath was on exertion. He does not lie flat on his back but that is because he is uncomfortable. Review of Systems Review of Systems: All systems reviewed & are unremarkable except as noted in HPI and below (Subjective) Exam Const: General: comfortable and no acute distress Other: A&O x3 Eyes: Pupils: Equal, round and reactive pupils present Neck: Neck: supple Resp: Effort & Inspection: normal respiratory effort Auscultation: crackles (Bilateral from bases to mid lung) Cardio: Rate: regular rate Rhythm: regular rhythm Heart sounds: no gallops, no murmurs and no rubs GI: GI Palp: Yes Soft to palpation and No Tenderness to palpation present (GI) Extrem: General: edema (Right lower extremity 3+, Hipolito sign negative, no TTP) Objective Data Vital Signs Vital Signs: Vital Signs - 24 hr 03/20/23 15:18 03/20/23 16:51 03/20/23 16:52 Temperature 99.0 F Pulse Rate 66 64 Respiratory Rate 20 Blood Pressure 214/87 H Pulse Oximetry 95 98 Oxygen Delivery Room Air Nasal Cannula Oxygen Flow Rate 2 03/20/23 16:53 03/20/23 16:54 03/20/23 18:00 Temperature Pulse Rate 62 65 Respiratory Rate 17 17 Blood Pressure 233/93 H 199/88 H Pulse Oximetry 87 L 100 100 Oxygen Delivery Room Air Oxygen Flow Rate 03/20/23 18:55 03/20/23 19:29 03/20/23 20:04 Temperature Pulse Rate 63 62 65 Respiratory Rate 24 H 21 H 16 Blood Pressure 186/84 H 207/88 H 184/75 H Pulse Oximetry 100 100 100 Oxygen Delivery Oxygen Flow Rate 03/20/23 21:20 03/20/23 22:38 03/20/23 23:55 Temperature 97.7 F 97.5 F L Pulse Rate 70 62 58 L Respiratory Rate 16 16 Blood Pressure 173/85 H 122/60 Pulse Oximetry 97 98 Oxygen Delivery Oxygen Flow Rate 03/21/23 00:00 03/21/23 00:00 03/21/23 02:00 Temperature Pulse Rate 58 L 56 L 48 L Respiratory Rate 16 Blood Pressure Pulse Oximetry 98 Oxygen Delivery Room Air Oxygen Flow Rate 03/21/23 04:00 03/21/23 03:56 03/21/23 04:00 Temperature 97.8 F Pulse Rate 62 62 57 L Respiratory Rate 16 16 Blood Pressure 170/77 H Pulse Oximetry 98 98 Oxygen Delivery Room Air Oxygen Flow Rate 03/21/23 06:06 Temperature Pulse Rate 50 L Respiratory Rate Blood Pressure Pulse Oximetry Oxygen Delivery Oxygen Flow Rate Intake/Output Intake/Output: Intake & Output 03/18/23 03/19/23 03/20/23 03/21/23 23:59 23:59 23:59 23:59 Intake Total 550 Output Total 200 Balance
--- NOTE | 2023-03-21 10:05 | PM.CNCAR ---
Assessment and Plan Assessment and plan (1) Congestive heart failure: Code(s): I50.9 - Heart failure, unspecified Status: Acute Assessment and Plan: Agree with IV Lasix. Closely monitor I/Os, renal function, and electrolytes. Continue beta costa. Will add Spironolactone given uncontrolled hypertension. Echocardiogram ordered and pending. Further recommendations/plan pending review of echocardiogram. (2) Hypertension: Code(s): I10 - Essential (primary) hypertension Status: Chronic Assessment and Plan: Uncontrolled. Continue Lisinopril 40mg, Metoprolol. Will start Spironolactone. (3) Renal insufficiency: Code(s): N28.9 - Disorder of kidney and ureter, unspecified Status: Acute Assessment and Plan: Closely monitor renal function with diuresis, addition of Spironolactone. 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 History of Present Illness History of Present Illness Consult date/time: 03/21/23 10:05 Requesting physician: Zoe Rosado MD Consult reason: congestive heart failure Reason For Visit: CHF with Hypoxia Narrative: We are consulted for congestive heart failure. This is an 82 year old male with hypertension, statin induced myositis, hyperlipidemia, peripheral arterial disease who presented with shortness of breath. Patient reports that about a month ago, he had pneumonia, and he has had shortness of breath since then. No chest pain at all. Has right greater than left lower extremity swelling. Patient reports that his blood pressures are high at home, usually in the 140s systolics at home. Patient was seen at his PCP's office yesterday. Noted to have blood pressure of 200/98mmHg. Given his elevated blood pressure and his symptoms, he was sent to the ED. ER workup showed troponins negative x 3, elevated BNP of 5390. CXR without acute findings. EKG with sinus rhythm with LVH with secondary repolarization abnormalities. He was admitted for congestive heart failure. Started on IV Lasix and reports urinating a lot with the Lasix. 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 He is retired code status full code Smoking packs per day: 1.5 Smoking cigarettes per day: 30.0 Smoking status: Former smoker Alcohol intake: never Substance use: never Do You Feel Safe in your Home?: Yes Lack of Transportation: No Lack of Food: Never True Current Housing: I Have Housing Concerned About Future Housing: No Difficulty Paying Gas/Electric Bills: No Difficulty Paying for Meds: No Currently Unemployed: No Education: High School Diploma/GED Difficulty w/ Childcare or Family Care: No Living arrangements: with family Occupation/Education: retired Gender identity (if verbalized by the patient): Male Sexual Orientation (if Verbalized by the Patient): Straight or Heterosexual Spiritual care concerns: No Meds Home Medications and Allergies Home Medications Medication Instructions Recorded Confirmed Typ
[2023-03-21] MEDS: ENOXAPARIN 40 MG/0.4 ML SYRINGE SUB-Q (10:42)
[2023-03-21] MEDS: FUROSEMIDE INJ 40 MG/4 ML VIAL IV PUSH (10:42)
[2023-03-21] MEDS: PANTOPRAZOLE 40 MG TABLET PO (10:44)
[2023-03-21] MEDS: predniSONE 10 MG TABLET 30 MG PO (10:44)
[2023-03-21] MEDS: lisinopriL 20 MG TABLET 40 MG PO (10:44)
[2023-03-21] MEDS: PARoxetine 10 MG TABLET PO (10:45)
[2023-03-21] MEDS: METOPROLOL SUCCINATE EXT REL 25 MG TABCR PO (10:48)
[2023-03-21] MEDS: SPIRONOLACTONE 25 MG TABLET PO (10:48)
[2023-03-21] MEDS: azaTHIOprine 50 MG TABLET 100 MG PO ×2 (10:49→17:15)
[2023-03-21] MEDS: APIXABAN 5 MG TABLET 10 MG PO (20:46)
[2023-03-22] VITALS (19 sets, daily range): BP systolic 99–173; BP diastolic 56–82; PULSE 47–83; RESP 18–20; TEMP 35.8–36.7; O2SAT 91–97
[2023-03-22 05:56] LABS: Hematocrit 37.2 % (42.0-52.0); Mean Corpuscular HGB Conc 32.3 g/dl (32-36); Mean Corpuscular Hemoglobin 32.7 pg (26-34); Mean Corpuscular Volume 101.4 fl (80-100); Mean Platelet Volume 10.7 fl (7.4-10.4); Platelet Count Result 219 k/mm3 (150-375); Red Blood Count 3.67 M/mm3 (4.6-6.20); Red Cell Distribution Width 16.8 % (11.5-14.5); White Blood Count 7.3 K/mm3 (4.5-10.0)
[2023-03-22 06:12] LABS: Anion Gap 4 mmol/L (8-16); Blood Urea Nitrogen 35 mg/dL (9-20); Calcium 8.8 mg/dL (8.4-10.2); Carbon Dioxide 31 mmol/L (22-30); Chloride 103 mmol/L (98-107); Estimated CRCL calculation 32 ml/min; Estimated Glomerular Filt Rate 49; Glucose 90 mg/dL (65-110); Magnesium 2.5 mg/dL (1.6-2.3); Potassium 4.5 mmol/L (3.4-5.0); Sodium 138 mmol/L (137-145)
--- NOTE | 2023-03-22 09:27 | PM.IMPN ---
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 Admitted on 03/20/2023 # DVT -presented with right lower extremity edema far greater than the left. Ultrasound venous Doppler on 03/21 demonstrating a DVT in the right femoral vein and in the right peroneal veins at the calf. V/Q scan resulting high probability of PE. -patient and family report he just got back from a [address] trip. This is provoked and he should have reassessment with his PCP at 3 months for the length of anticoagulation use. -Eliquis 10 mg b.i.d. for 7 days and then 5 mg b.i.d. maintenance # heart failure borderline reduced ejection fraction -surface echo on 03/21 demonstrating 45-50% EF with grade 1 diastolic dysfunction mild aortic valve regurg mild mitral valve regurg. -continue Lasix and spironolactone per Cardiology -daily weights, fluid restriction 1.5 L per day, intake output strict, heart healthy diet #HTN -has been uncontrolled at times overnight. Seems to be labile but there is a significant difference between automatic and manual measurements. I have asked nursing staff to conduct manual blood pressures from now on. Hope to see his blood pressure equalizer we can send him home tomorrow. -continue Toprol lisinopril spironolactone and daily Lasix. FEN: Heart healthy diet. Fluid restriction. Saline lock IV GI prophylaxis: Not indicated DVT prophylaxis: Lovenox Lines: Peripheral IV Code Status: Full code Dispo: Stable. Disposition pending blood pressure management and therapy recommendations Subjective Date/time seen: 03/22/23 09:27 Interval history: No acute overnight events. The and son are present today and participate in discussion. All questions answered to satisfaction. The patient feels weak although he does report his breathing is good. He denies any chest pain. Review of Systems Review of Systems: All systems reviewed & are unremarkable except as noted in HPI and below (Subjective) Exam Const: General: comfortable and no acute distress Other: A&O x3 Eyes: Pupils: Equal, round and reactive pupils present Neck: Neck: supple Resp: Effort & Inspection: normal respiratory effort Auscultation: crackles (Scant at the bases) and no wheezes Cardio: Rate: regular rate Rhythm: regular rhythm Heart sounds: no gallops, no murmurs and no rubs GI: GI Palp: Yes Soft to palpation and No Tenderness to palpation present (GI) Extrem: General: edema Other: 2 to 3+ edema at the bilateral feet. 3+ edema of the right lower extremity up to the mid harris. Nontender to palpation Objective Data Vital Signs Vital Signs: Vital Signs - 24 hr 03/21/23 10:48 03/21/23 11:52 03/21/23 11:53 Temperature 96.6 F L Pulse Rate 64 72 Respiratory Rate 20 Blood Pressure 145/71 H Pulse Oximetry 99 99 Oxygen Delivery Oxygen Flow Rate 03/21/23 16:20 03/21/23 10:00 03/21/23 14:00 Temperature 98.1 F Pulse Rate 75 64 69 Respiratory Rate 20 Blood Pressure 171/85 H Pulse
[2023-03-22] MEDS: PARoxetine 10 MG TABLET PO (09:41)
[2023-03-22] MEDS: lisinopriL 20 MG TABLET 40 MG PO (09:41)
[2023-03-22] MEDS: azaTHIOprine 50 MG TABLET 100 MG PO ×2 (09:41→17:30)
[2023-03-22] MEDS: SPIRONOLACTONE 25 MG TABLET PO (09:42)
[2023-03-22] MEDS: METOPROLOL SUCCINATE EXT REL 25 MG TABCR PO (09:42)
[2023-03-22] MEDS: predniSONE 10 MG TABLET PO (09:43)
[2023-03-22] MEDS: APIXABAN 5 MG TABLET 10 MG PO ×2 (09:44→20:05)
[2023-03-22] MEDS: PANTOPRAZOLE 40 MG TABLET PO (09:44)
--- NOTE | 2023-03-22 09:51 | PM.PNCARD ---
Progress Note: A&P Assessment and Plan (1) Deep vein thrombosis (DVT) of right lower extremity: Code(s): I82.401 - Acute embolism and thrombosis of unspecified deep veins of right lower extremity Status: Acute Assessment and Plan: Venous Duplex shows DVT in the right femoral vein and in the right peroneal veins at the calf. Has been started on anticoagulation. V/Q scan pending to assess for PE. (2) Congestive heart failure: Code(s): I50.9 - Heart failure, unspecified Status: Acute Assessment and Plan: Echocardiogram shows LVEF 45-50%, moderately increased LV wall thickness, mild aortic and mitral valve regurgitation. Clinically, he seems to be overall compensated now. CXR is clear. He does have asymmetric lower extremity edema, however the DVT likely cause of RLE swelling. He is also on chronic prednisone therapy which can cause fluid retention as well. Continue Toprol and Lisinopril. Started on Spironolactone, continue. Will start PO Lasix. (3) Hypertension: Code(s): I10 - Essential (primary) hypertension Status: Chronic Assessment and Plan: Improving. He is on chronic prednisone therapy, which can cause hypertension. Continue Toprol, Lisinopril, Spironolactone, Lasix. If additional blood pressure control is needed, can increase dose of beta costa or consider addition of Amlodipine. 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 Will arrange for close outpatient follow up in our office. Subjective Date/time seen: 03/22/23 09:51 Interval history: Reason for visit: Congestive heart failure HPI: We are consulted for congestive heart failure. This is an 82 year old male with hypertension, statin induced myositis, hyperlipidemia, peripheral arterial disease who presented with shortness of breath. Patient reports that about a month ago, he had pneumonia, and he has had shortness of breath since then. No chest pain at all. Has right greater than left lower extremity swelling. Patient reports that his blood pressures are high at home, usually in the 140s systolics at home. Patient was seen at his PCP's office yesterday. Noted to have blood pressure of 200/98mmHg. Given his elevated blood pressure and his symptoms, he was sent to the ED. ER workup showed troponins negative x 3, elevated BNP of 5390. CXR without acute findings. EKG with sinus rhythm with LVH with secondary repolarization abnormalities. He was admitted for congestive heart failure. Started on IV Lasix and reports urinating a lot with the Lasix. Date of service: Venous duplex shows DVT. V/Q scan pending to assess for PE. He is off of oxygen this morning. Lower extremity swelling feels better today. Otherwise doing well. Review of Systems Review of Systems: All systems reviewed & are unremarkable except as noted in HPI and below (HPI) Exam Const: General: comfortable and no acute distress HENMT: Mouth: Yes moist mucous membranes Eyes: General: appearance normal, both eyes and all related structures Sclera: sclerae normal Resp: Effort & Inspection: normal respiratory effort Cardio: Rate: regular rate Rhythm: regular rhythm Other: Right > left lower extremity edema Skin: General skin exam: normal color Neuro: Speech: normal speech Psych: Mental Status: mental status grossly normal Affect: normal affect Objective Data Vital Signs Vital Signs: Vital Signs - 24 hr 03/21/23 10:48 03/21/23 11:52 03/21/23 11:53 Temperature 35.9 C L Pulse Rate 64 72 Respiratory Rate 20 Bl
[2023-03-22] MEDS: FUROSEMIDE 40 MG TABLET PO (10:32)
--- NOTE | 2023-03-22 13:10 | PC.NURSE ---
On 03/22/23, the student, [ Grover Loera], provided care and completed [facility] documentation on this patient. I have reviewed the student's documentation and agree with the findings.
--- NOTE | 2023-03-22 13:17 | PC.NURSE ---
On 03/22/23, the student, [ Grover Loera], provided care and completed [facility] documentation on this patient. I have reviewed the student's documentation and agree with the findings.
[2023-03-23] VITALS (21 sets, daily range): BP systolic 109–193; BP diastolic 54–94; PULSE 47–83; RESP 16–21; TEMP 36.4–36.8; O2SAT 92–99
[2023-03-23 05:36] LABS: Basophils Percent Auto 0.3 % (0.2-1.2); Eosinophils Absolute Auto 0.1 K/mm3 (0-0.3); Hematocrit 36.3 % (42.0-52.0); Hemoglobin 11.4 g/dL (14.0-18.0); Immature Granulocyte Absolute 0.08 K/mm3 (0.00-0.031); Immature Granulocyte Percent A 1.3 % (0-0.5); Lymphocytes Absolute Auto 0.83 K/mm3 (0.9-3.2); Lymphocytes Percent Auto 13.6 % (18.3-44.2); Mean Corpuscular HGB Conc 31.4 g/dl (32-36); Mean Corpuscular Hemoglobin 32.5 pg (26-34); Mean Corpuscular Volume 103.4 fl (80-100); Mean Platelet Volume 10.2 fl (7.4-10.4); Monocytes Absolute Auto 0.6 K/mm3 (0.1-0.6); Monocytes Percent Auto 9.4 % (2.6-8.5); Neutrophils Absolute Auto 4.5 K/mm3 (1.3-6.7); Neutrophils Percent Auto 74.4 % (45.5-73.1); Platelet Count Result 206 k/mm3 (150-375); Red Blood Count 3.51 M/mm3 (4.6-6.20); Red Cell Distribution Width 16.8 % (11.5-14.5); White Blood Count 6.1 K/mm3 (4.5-10.0)
[2023-03-23 05:41] LABS: Anion Gap 2 mmol/L (8-16); Blood Urea Nitrogen 43 mg/dL (9-20); Calcium 8.8 mg/dL (8.4-10.2); Carbon Dioxide 32 mmol/L (22-30); Chloride 105 mmol/L (98-107); Estimated CRCL calculation 24 ml/min; Estimated Glomerular Filt Rate 34; Glucose 85 mg/dL (65-110); Magnesium 2.5 mg/dL (1.6-2.3); Potassium 4.3 mmol/L (3.4-5.0); Sodium 139 mmol/L (137-145)
--- NOTE | 2023-03-23 08:29 | PM.IMPN ---
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 Admitted on 03/20/2023 # DVT -presented with right lower extremity edema far greater than the left. Ultrasound venous Doppler on 03/21 demonstrating a DVT in the right femoral vein and in the right peroneal veins at the calf. V/Q scan resulting high probability of PE. -patient and family report he just got back from a 16 hour road trip. This is provoked and he should have reassessment with his PCP at 3 months for the length of anticoagulation use. -Eliquis 10 mg b.i.d. for 7 days and then 5 mg b.i.d. maintenance # heart failure borderline reduced ejection fraction -surface echo on 03/21 demonstrating 45-50% EF with grade 1 diastolic dysfunction mild aortic valve regurg mild mitral valve regurg. -continue Lasix. Spironolactone may need to be discontinued because of his creatinine clearance. Will discuss with Cardiology -daily weights, fluid restriction 1.5 L per day, intake output strict, heart healthy diet -compensated. Chronic kidney disease stage 3B -we only have records dating back to July 2022. It appeared he came in with an elevated creatinine at 2.2 and left at 1.4. -admitted on 03/20 with a creatinine of 1.5. On 03/23 it is 1.9. This may be within his norm and he has also received diuretics. Will need to continue to monitor this for 1 more day #HTN -manual measurement only. Automatic 1st manual have demonstrated a large difference. -uncontrolled. Toprol changed to Coreg. Continue lisinopril. Continue Lasix. Added amlodipine 10 mg p.o. q.day on 03/23 FEN: Heart healthy diet. Fluid restriction. Saline lock IV GI prophylaxis: Not indicated DVT prophylaxis: Lovenox Lines: Peripheral IV Code Status: Full code Dispo: Stable. Keep for another day to monitor his uncontrolled blood pressure and serum creatinine. His living situation is changing on discharge and he is moving to [place] so it would be prudent to have everything stabilized before sending him on his way. Care Coordination consulted. Subjective Date/time seen: 03/23/23 08:29 Interval history: No acute overnight events. Patient has no complaints. Review of Systems Review of Systems: All systems reviewed & are unremarkable except as noted in HPI and below (Subjective) Exam Const: General: comfortable and no acute distress Other: A&O x3 Eyes: Pupils: Equal, round and reactive pupils present Neck: Neck: supple Resp: Effort & Inspection: normal respiratory effort Auscultation: crackles (Scant) Cardio: Rate: regular rate Rhythm: regular rhythm GI: GI Palp: Yes Soft to palpation and No Tenderness to palpation present (GI) Extrem: General: edema (Bilateral feet. 2+. Improved) Objective Data Vital Signs Vital Signs: Vital Signs - 24 hr 03/22/23 09:42 03/22/23 10:00 03/22/23 09:40 Temperature 97.8 F Pulse Rate 74 69 71 Respiratory Rate 20 Blood Pressure 130/64 Pulse Oximetry 97 Oxygen Delivery 03/22/23 12:15 03/22/23 1
[2023-03-23] MEDS: azaTHIOprine 50 MG TABLET 100 MG PO ×2 (09:10→16:50)
[2023-03-23] MEDS: carvediloL 12.5 MG TABLET PO ×2 (09:11→20:09)
[2023-03-23] MEDS: PARoxetine 10 MG TABLET PO (09:11)
[2023-03-23] MEDS: APIXABAN 5 MG TABLET 10 MG PO ×2 (09:12→20:09)
[2023-03-23] MEDS: predniSONE 10 MG TABLET PO (09:12)
[2023-03-23] MEDS: LORATADINE 10 MG TABLET PO (09:12)
[2023-03-23] MEDS: amLODIPine BESYLATE 5 MG TABLET 10 MG PO (09:12)
[2023-03-23] MEDS: lisinopriL 20 MG TABLET 40 MG PO (09:12)
[2023-03-23] MEDS: FUROSEMIDE 40 MG TABLET PO (09:12)
[2023-03-23] MEDS: SPIRONOLACTONE 25 MG TABLET PO (09:12)
[2023-03-23] MEDS: PANTOPRAZOLE 40 MG TABLET PO (09:12)
--- NOTE | 2023-03-23 10:24 | P.CDI_ITS ---
Acute. Systolic diastolic combined. CDI Query Clarification Request CHF noted in the assessment and plan. Patient receiving Lasix. Elevated BNP on 03/20/23 lab work. 03/21/23 Echo notes LVEF 45-50%. Please specify type and acuity of heart failure if known. * Acute * Chronic * Acute on Chronic * Unknown * Systolic * Diastolic * Combined Systolic and Diastolic * Unknown
--- NOTE | 2023-03-23 10:24 | WPDCDIQUERY2 ---
CDI Query Clarification Request CHF noted in the assessment and plan. Patient receiving Lasix. Elevated BNP on 03/20/23 lab work. 03/21/23 Echo notes LVEF 45-50%. Please specify type and acuity of heart failure if known. Acute Chronic Acute on Chronic Unknown Systolic Diastolic Combined Systolic and Diastolic Unknown
[2023-03-23 23:34] LABS: Glucose Point of Care 130 mg/dl (65-105)
[2023-03-24] VITALS: PULSE 52
[2023-03-24 02:00] VITALS: PULSE 82
[2023-03-24 04:00] VITALS: BP 120/60; PULSE 52; PULSE 56; RESP 18; TEMP 36.6; O2SAT 90
[2023-03-24 05:46] LABS: Basophils Percent Auto 0.4 % (0.2-1.2); Eosinophils Percent Auto 0.6 % (0-4.4); Hematocrit 36.8 % (42.0-52.0); Hemoglobin 11.8 g/dL (14.0-18.0); Immature Granulocyte Absolute 0.05 K/mm3 (0.00-0.031); Immature Granulocyte Percent A 0.7 % (0-0.5); Lymphocytes Absolute Auto 0.63 K/mm3 (0.9-3.2); Lymphocytes Percent Auto 9.3 % (18.3-44.2); Mean Corpuscular HGB Conc 32.1 g/dl (32-36); Mean Corpuscular Volume 102.8 fl (80-100); Mean Platelet Volume 10.5 fl (7.4-10.4); Monocytes Absolute Auto 0.7 K/mm3 (0.1-0.6); Monocytes Percent Auto 9.6 % (2.6-8.5); Neutrophils Absolute Auto 5.3 K/mm3 (1.3-6.7); Neutrophils Percent Auto 79.4 % (45.5-73.1); Platelet Count Result 224 k/mm3 (150-375); Red Blood Count 3.58 M/mm3 (4.6-6.20); Red Cell Distribution Width 16.5 % (11.5-14.5); White Blood Count 6.7 K/mm3 (4.5-10.0)
[2023-03-24 05:56] LABS: Anion Gap 5 mmol/L (8-16); Blood Urea Nitrogen 52 mg/dL (9-20); Carbon Dioxide 31 mmol/L (22-30); Chloride 102 mmol/L (98-107); Estimated CRCL calculation 22 ml/min; Estimated Glomerular Filt Rate 30; Glucose 94 mg/dL (65-110); Magnesium 2.5 mg/dL (1.6-2.3); Potassium 4.4 mmol/L (3.4-5.0); Sodium 138 mmol/L (137-145)
[2023-03-24 06:00] VITALS: PULSE 55
[2023-03-24 08:28] VITALS: BP 152/67; PULSE 65; RESP 24; TEMP 36.6; O2SAT 93
--- NOTE | 2023-03-24 08:40 | PM.DS ---
DS: Admitting Diagnosis Discharge Date March 24, 2023 Admitting Diagnosis Shortness of breath DS: Discharge Diagnosis Discharge Diagnosis (1) Deep vein thrombosis (DVT) of right lower extremity: Code(s): I82.401 - Acute embolism and thrombosis of unspecified deep veins of right lower extremity Status: Acute (2) Pulmonary embolism: Code(s): I26.99 - Other pulmonary embolism without acute cor pulmonale Status: Acute (3) Localized swelling of right lower extremity: Code(s): R22.41 - Localized swelling, mass and lump, right lower limb Status: Acute (4) Congestive heart failure: Code(s): I50.9 - Heart failure, unspecified Status: Acute (5) Statin-induced myositis: Code(s): M60.9 - Myositis, unspecified; T46.6X5A - Adverse effect of antihyperlipidemic and antiarteriosclerotic drugs, initial encounter Status: Acute (6) Hypertension: Code(s): I10 - Essential (primary) hypertension Status: Chronic (7) Hyperlipidemia: Code(s): E78.5 - Hyperlipidemia, unspecified Status: Acute DS: Summary Hospital Course Hospital Course: This is a very pleasant 82-year-old white male with a past medical history hypertension, hyperlipidemia, peripheral artery disease, CKD, 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 The patient was found to have a DVT in his right lower extremity in the right femoral vein and right peroneal veins at the calf. A V/Q scan demonstrated high probability of PE as well. He had just completed a [address] trip with his family. The patient was started on Eliquis for this provoked DVT/PE and will have follow-up in 3 months with his primary care on this matter. He was also found to have a mild acute decompensation of borderline reduced ejection fraction heart failure (new dx). A surface echo on 03/21 demonstrated 45-50% EF with grade 1 diastolic dysfunction mild aortic valve regurg mild mitral valve regurg. Lasix was started at 40 mg q.day. he will be discharged on a low dose 20 mg per day and 2 L fluid restriction due to serum creatinine and appearing very well compensated. Chronic kidney disease stage 3B. It is unclear what his baseline is however the only other admission we have his in July 2022 and his creatinine was as high as 2.2. He leaves with the creatinine of 2.1. It is stable and he should have follow-up with Nephrology. Repeat BMP in 3 days to monitor. As for his hypertension, metoprolol was discontinued and replaced with Coreg 3.25 mg p.o. b.i.d., amlodipine 10 mg p.o. q.day was added. Lisinopril was discontinued due to his serum creatinine on the higher side of his normal ranges. On 03/24/2023 the patient is stable for discharge. Discussion held with both sons in the room and all questions were answered to satisfaction. The patient's primary care doctor currently is Dr. Davalos however he is moving up to [facility] with 1 of his sons. I have explained the importance of tracking his daily weights heart rate and blood pressure and also very importantly following up very closely with new doctors. I have found apparently reputable primary care doctor, contract specialist, rehabilitation supervisor in the area of [place] and provided their names and numbers for them to call as well as having a repeat BMP in 3 days. They are amenable to this plan. We have also discussed the adverse effects and risks versus benefits of all new medications and educated them on the disease process of chronic kidney disease heart failure and clots and high blood pressure. The patient was a DNR during his admission.. Time Spent with Patient Time attestation: Total time spent providing and/or coordinating discharge services: Exam Const: General: cooperative and no acute distress Resp: Effort & Inspection: normal respiratory effort Auscultation: clear to auscultation bilaterally C
[2023-03-24] MEDS: lisinopriL 20 MG TABLET 40 MG PO (09:06)
[2023-03-24] MEDS: LORATADINE 10 MG TABLET PO (09:06)
[2023-03-24] MEDS: PANTOPRAZOLE 40 MG TABLET PO (09:06)
[2023-03-24] MEDS: azaTHIOprine 50 MG TABLET 100 MG PO (09:07)
[2023-03-24] MEDS: amLODIPine BESYLATE 5 MG TABLET 10 MG PO (09:07)
[2023-03-24] MEDS: carvediloL 12.5 MG TABLET PO (09:07)
[2023-03-24] MEDS: APIXABAN 5 MG TABLET 10 MG PO (09:07)
[2023-03-24] MEDS: FUROSEMIDE 40 MG TABLET PO (09:07)
[2023-03-24] MEDS: PARoxetine 10 MG TABLET PO (09:08)
== END 2023-03-24 09:37 | disposition home or self-care (01) | DRG 299 ==
LOC: ANHED 17:54 → ANHIMU 20:49
PROVIDERS: Emergency Medicine; Admitting Provider Internal Medicine; Emergency Provider Emergency Medicine; PCP Family Medicine; Visit Provider General Practice
DX: I82.411 Acute embolism and thrombosis of right femoral vein (principal); I26.99 Other pulmonary embolism without acute cor pulmonale; I50.41 Acute combined systolic (congestive) and diastolic (congestive) heart failure; I13.0 Hypertensive heart and chronic kidney disease with heart failure and stage 1 through stage 4 chronic kidney disease, or unspecified chronic kidney disease; N18.32 Chronic kidney disease, stage 3b; I82.451 Acute embolism and thrombosis of right peroneal vein; M60.9 Myositis, unspecified; T46.6X5A Adverse effect of antihyperlipidemic and antiarteriosclerotic drugs, initial encounter; E78.5 Hyperlipidemia, unspecified; I73.9 Peripheral vascular disease, unspecified; K74.60 Unspecified cirrhosis of liver; N28.9 Disorder of kidney and ureter, unspecified; Z66 Do not resuscitate; Z90.49 Acquired absence of other specified parts of digestive tract; Z89.021 Acquired absence of right finger(s); Z87.891 Personal history of nicotine dependence
CPT/HCPCS: 36415; 70450; 71045; 71046; 78582; 80048; 80053; 81001; 82948; 83735; 83880; 84484; 85025; 85027; 85610; 85730; 90471; 90715; 93005; 93306; 93971; 97161; 97165; 99284; 99285; A9270; A9540; A9558; C8929; J1650; J1940; J7512

== ENCOUNTER 2023-03-24 11:07 | Emergency (ER) | payer MEDICARE, SELFPAY ==
--- NOTE | ~2023-03-24 | XR_ITS ---
Portable chest x-ray Comparison: 03/22/2023 Clinical History: Status post fall Findings: Calcified right basilar granuloma is unchanged. No acute pulmonary abnormality seen. Card iomediastinal silhouette is stable. Bones and soft tissues are unremarkable. Impression: No acute abnormality. Reviewed, dictated and finalized at [facility]. VER Impression: No acute abnormality.
--- NOTE | ~2023-03-24 | CT_ITS ---
CT head without contrast Indication: Status post fall COMPARISON: 03/23/2019 Technique: Serial scans were obtained through the brain without the administration of contrast. Dose reduction technique was used on this scan by utilizing automated exposure control and iterative recon struction technique. The dose-length product (DLP) was 605.33 mGy-cm. Findings: There is no evidence of intracranial hemorrhage, mass lesion, or acute infarct. The ventri cles and subarachnoid spaces are dilated, consistent with mild atrophy. Low attenuation regions are seen within the periventricular white matter bilaterally, likely representing changes from chronic mi crovascular ischemic disease. There is no evidence of edema, mass effect or midline shift. Right max illary sinus disease noted. The remaining visualized paranasal sinuses and mastoid air cells are damaris r. Impression: No intracranial hemorrhage, mass, or acute infarct. Atrophy and chronic white matter changes, as above. Reviewed, dictated and finalized at [facility]. TABLE MECHANIC Impression: No intracranial hemorrhage, mass, or acute infarct. Atrophy and chronic white matter changes, as above.
[2023-03-24 11:16] VITALS: BP 138/64; PULSE 61; RESP 16; TEMP 36.6; O2SAT 96
[2023-03-24 12:22] LABS: Basophils Percent Auto 0.5 % (0.2-1.2); Eosinophils Absolute Auto 0.1 K/mm3 (0-0.3); Eosinophils Percent Auto 0.7 % (0-4.4); Hematocrit 37.8 % (42.0-52.0); Hemoglobin 12.2 g/dL (14.0-18.0); Immature Granulocyte Absolute 0.05 K/mm3 (0.00-0.031); Immature Granulocyte Percent A 0.6 % (0-0.5); Lymphocytes Absolute Auto 0.23 K/mm3 (0.9-3.2); Lymphocytes Percent Auto 2.7 % (18.3-44.2); Mean Corpuscular HGB Conc 32.3 g/dl (32-36); Mean Corpuscular Hemoglobin 33.2 pg (26-34); Mean Platelet Volume 10.4 fl (7.4-10.4); Monocytes Absolute Auto 0.5 K/mm3 (0.1-0.6); Monocytes Percent Auto 5.6 % (2.6-8.5); Neutrophils Absolute Auto 7.8 K/mm3 (1.3-6.7); Neutrophils Percent Auto 89.9 % (45.5-73.1); Platelet Count Result 246 k/mm3 (150-375); Red Blood Count 3.67 M/mm3 (4.6-6.20); Red Cell Distribution Width 16.6 % (11.5-14.5); White Blood Count 8.6 K/mm3 (4.5-10.0)
[2023-03-24 12:32] LABS: INR 2.2; Prothrombin Time 26.3 Seconds (11.1-14.7)
[2023-03-24 12:33] LABS: Partial Thromboplastin Time 45.4 SECONDS (22.3-36.8)
[2023-03-24 12:34] LABS: Alanine Aminotransferase 18 U/L (6-50); Albumin Level 3.5 g/dL (3.5-5.1); Alkaline Phosphatase 63 U/L (38-126); Anion Gap 3 mmol/L (8-16); Aspartate Amino Transferase 28 U/L (17-59); Bilirubin,Total 1.1 mg/dL (0.2-1.3); Blood Urea Nitrogen 52 mg/dL (9-20); Calcium 9.2 mg/dL (8.4-10.2); Carbon Dioxide 34 mmol/L (22-30); Chloride 100 mmol/L (98-107); Estimated CRCL calculation 23 ml/min; Estimated Glomerular Filt Rate 32; Glucose 126 mg/dL (65-110); Potassium 4.6 mmol/L (3.4-5.0); Sodium 137 mmol/L (137-145)
[2023-03-24 13:11] VITALS: BP 103/58; PULSE 62; RESP 19; O2SAT 98
--- NOTE | 2023-03-24 13:45 | ECG_ITS ---
Measurements Intervals [place] Rate: 64 P: 23 CA: 187 QRS: -23 QRSD: 83 T: 202 QT: 388 QTc: 403 Interpretive Statements SINUS RHYTHM WITH FREQUENT VENTRICULAR PREMATURE COMPLEXES BORDERLINE LEFT AXIS DEVIATION [QRS AXIS < -20] LEFT VENTRICULAR HYPERTROPHY AND ST-T CHANGE [VOLTAGE CRITERIA PLUS ST/T ABNORMALITY] ABNORMAL ECG COMPARED TO ECG 03/20/2023 20:20:40 NO SIGNIFICANT CHANGES Electronically Signed On 03-25-2023 8:16:08 GEOMETRY TUTOR by Shiv Gill M.D.
--- NOTE | 2023-03-24 13:47 | ED.FALL ---
HPI - Fall General Chief Complaint: Fall Stated Complaint: glf Time Seen by Provider: 03/24/23 12:04 Source: patient and family Limitations: no limitations History of Present Illness HPI Narrative: Patient is a 82-year-old male presents to the emergency department accompanied by son for a fall. Patient states around 10:00 a.m. he stood up and was walking approximately 20 ft when he fell onto his right side, patient is unsure as to why he fell but denies feeling lightheaded this CT angio head and neck is consciousness trauma patient denies hitting his head. Patient has been ambulatory since the event. Patient admits to some mild discomfort over his right flank region re has a scrape that is no longer bleeding. Patient admits to taking all his medications as prescribed and is to see his medications including blood thinners for a recent diagnosis and discharge from the hospital within the past week of a pulmonary embolism and a blood clot in his right leg in addition patient also has to history of heart failure in which his ejection fraction is noted the summer and 40s and he is taking moderate feels addition to blood pressure management medications. Patient admits to being well hydrated. Patient denies any numbness, weakness, headache, vision changes, confusion, chest pain, difficulty breathing, palpitations, abdominal pain, nausea, vomiting, diarrhea, melena hematochezia urinary discomfort, urinary incontinence, stool incontinence, back pain, rash. Patient states that he typically uses a cane to ambulate. Patient denies hematuria. patient states that overall he feels well at this time. Related Data Home Medications Medication Instructions Recorded Confirmed cetirizine 10 mg tablet (Zyrtec) 10 mg PO DAILY 06/14/22 03/20/23 pantoprazole 40 mg tablet,delayed 40 mg PO QAM 07/31/22 03/20/23 release azathioprine 50 mg tablet 100 mg PO BID 03/20/23 03/20/23 paroxetine HCl 10 mg tablet 10 mg PO DAILY 03/20/23 03/20/23 Allergies Allergy/AdvReac Type Severity Reaction Status Date / Time [id number] Reductase AdvReac Severe rhabdomyolo Verified 03/20/23 16:59 Inhibitor sis Review of Systems Review of Systems: A 10 system review of systems was completed on the patient and is negative except for what is stated in the HPI. Nursing and ancillary documentation was reviewed. 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 He is retired code status full code Smoking packs per day: 1.5 Smoking cigarettes per day: 30.0 Smoking status: Former smoker Alcohol intake: never Substance use: never Do You Feel Safe in your Home?: Yes Lack of Transportation: No Lack of Food: Never True Current Housing: I Have Housing Concerned About Future Housing: No Difficulty Paying Gas/Electric Bills: No Difficulty Paying for Meds: No Currently Unemployed: No Education: High School Diploma/GED Difficulty w/ Childcare or Family Care: No Living arrangements: with family Occupation/Education: retired Gender identity (if verbalized by the patient): Male Sexual Orientation (if Verbalized by the Patient): Straight or Heterosexual Spiritual care concerns: No Comments A 10 system review of systems was completed on
[2023-03-24] MEDS: ACETAMINOPHEN 500 MG TABLET 1000 MG PO (13:59)
[2023-03-24] MEDS: TETANUS,DIPHTHERIA,AC PERTUSSIS ADULT (0.5 ML) BOOSTRIX IM (13:59)
[2023-03-24 14:03] LABS: Magnesium 2.5 mg/dL (1.6-2.3)
[2023-03-24 14:15] LABS: Troponin I 0.019 ng/mL (0.000-0.034)
[2023-03-24 14:20] LABS: Appearance Urine Clear (Clear); Bacteria Urine None Seen /hpf; Bilirubin Urine Negative (Negative); Color Urine Yellow (Yellow); Glucose Urine UA Negative (Negative); Ketones Urine Negative (Negative); Leukocyte Esterase Ur Negative LEU/UL (Negative); Nitrate Urine Negative (Negative); Non Pathogenic Casts 0-2; Protein Urine Negative (Negative); Specific Grav Ur 1.007 (1.001-1.035); Squamous Epithelial Cell Urine None seen /hpf (Few); Urobilinogen Urine 0.2 mg/dL (<2.0); WBC Urine 0-5 /hpf; pH Urine 6.5 (5.0-9.0)
[2023-03-24 14:24] LABS: Add Urine Microscopic? YES
[2023-03-24 16:56] VITALS: BP 117/85; PULSE 80; RESP 19; TEMP 36.7; O2SAT 98
== END 2023-03-24 16:58 | disposition home or self-care (01) ==
PROVIDERS: Physician Assistant; Emergency Provider Student in an Organized Health Care Education/Training Program; PCP Family Medicine
DX: S30.811A Abrasion of abdominal wall, initial encounter (principal); S81.011A Laceration without foreign body, right knee, initial encounter; E78.5 Hyperlipidemia, unspecified; I10 Essential (primary) hypertension; Z87.891 Personal history of nicotine dependence; Z86.711 Personal history of pulmonary embolism; Z23 Encounter for immunization; W19.XXXA Unspecified fall, initial encounter
CPT/HCPCS: 36415; 70450; 71045; 80053; 81001; 83735; 84484; 85025; 85610; 85730; 90471; 90715; 93005; 99284; A9270